=== PATIENT | male | born 1955 | race Caucasian/White ===

== ENCOUNTER 2017-10-20 08:50 | Emergency (ER) | payer OTHER ==
[~2017-10-20] VITALS: Ht 180.3 cm; Wt 74.2 kg
[~2017-10-20 08:50] MED LIST: ASPI81TA28 PO; MISCTAB26 PO; [UNRECOGNIZED DRUG - OTHER] PO; vitamin c PO
[2017-10-20 08:53] VITALS: TEMP 36.4; Ht 180.3 cm; Wt 74.2 kg
[2017-10-20] MEDS ORDERED: CALC-354 PO (09:40)
[2017-10-20] MEDS ORDERED: SODIUM CHLORIDE 0.9% 1000ML 1,000 ML IV STA (09:46)
[2017-10-20] MEDS ORDERED: ONDANSETRON INJ 2 MG/ML 2 ML VIAL IV STA (09:46)
[2017-10-20] MEDS ORDERED: MoRPHine SULFATE 4 MG/ML 1 ML CARP\\VIAL IV PRN (10:00)
[2017-10-20 10:09] LABS: BASO % 0.7 %; BASO ABS # 0.04 K/uL (0-0.2); EOS % 0.9 %; EOS ABS # 0.05 K/uL (0-0.5); HEMATOCRIT 46.4 % (42-52); HEMOGLOBIN 16.4 g/dL (14.0-18.0); IG# 0.02 K/uL (0.00-0.02); LYMPH % 32.9 %; LYMPH ABS # 1.93 K/uL (1.2-3.4); MEAN CELL VOLUME 88.4 fL (80-100); MEAN CORPUSCULAR HEMOGLOBIN 31.2 pg (25-34); MEAN CORPUSCULAR HGB CONC 35.3 g/dl (32-36); MEAN PLATELET VOLUME 10.5 fL (7.4-10.4); MONO % 10.9 %; MONO ABS # 0.64 K/uL (0.11-0.59); NEUT % 54.3 %; NEUT ABS # 3.19 K/uL (1.4-6.5); PLATELET COUNT 171 K/uL (130-400); RED CELL DISTRIBUTION WIDTH CV 13.1 % (11.5-14.5); RED CELL DISTRIBUTION WIDTH SD 42.2 fL (36.4-46.3); WHITE BLOOD COUNT 5.87 K/uL (4.8-10.8)
[2017-10-20 10:24] LABS: ALBUMIN 3.6 gm/dl (3.4-5.0); CALCIUM 9.2 mg/dl (8.5-10.1); CREATININE 0.95 mg/dl (0.60-1.40); POTASSIUM 4.1 mmol/L (3.5-5.1)
[2017-10-20 10:27] LABS: TOTAL PROTEIN 7.6 gm/dl (6.4-8.2)
--- NOTE | 2017-10-20 10:56 | DIAGNOSTIC IMAGING REPORT ---
PA CHEST WITH ABDOMINAL SERIES CLINICAL HISTORY: Generalized abdominal pain. FINDINGS: A PA chest radiograph is compared to study dated 06/08/2016. The cardiomediastinal silhouette is unremarkable. The lungs and pleural spaces are clear. No pneumothorax is seen. The bony thorax is grossly intact. Supine and erect abdominal radiographs are correlated with abdominal CT dated 05/10/2016. There is a nonobstructed abdominal bowel gas pattern. No evidence of intraperitoneal free air is seen. There are no abnormal abdominal calcifications. Calcified phleboliths are noted in the pelvis. The lumbosacral spine and bony pelvis appear intact. IMPRESSION: 1. No active disease in the chest. 2. Nonobstructed abdominal bowel gas pattern. Electronically signed by: Esau Kasper M.D. 10/20/2017 10:54 AM Dictated Date/Time: 10/20/2017 10:48 AM
[2017-10-20] MEDS ORDERED: METR-163 PO (11:47)
[2017-10-20 11:55] VITALS: BP 154/93; PULSE 59; O2SAT 100
--- NOTE | 2017-10-20 16:21 | EMERGENCY ROOM VISIT NOTE ---
ED Visit Note First contact with patient: 09:01 Chief Complaint: Abdominal cramping and diarrhea. History of Present Illness: Mr. Damon is a 61-year-old white male who ambulates into the ED complaining of upper abdominal cramping and diarrhea. Historically patient reports he has had previous Giardia infections from visiting [place]. Additionally he reports he is currently receiving radiation treatment for prostate cancer. Patient reports he returned from [place] on October 11. While in [place] he reports on October 04 he had 1 day of nausea and vomiting and reports that the same day he started having multiple episodes of diarrhea. He reports this diarrhea is similar to his previous Giardia infection. He describes his diarrhea as foul-smelling, watery and initially yellow in color. He is also noted that he has been having sulfur tasting burps. Patient reports starting on Monday night, 2 nights ago, he started having a decreased appetite and upper bilateral quadrant abdominal pain. He reports his pain has been constant but has significantly waxed and waned in intensity. He describes his pain as a cramping sensation. At its worse he rates his discomfort 10/10. He has not identified any aggravating or alleviating factors related to his pain. He has not taken any medication for pain prior to arrival at the hospital. Associated with his pain he continues to have yellowish diarrhea, sensations of abdominal bloating, decreased appetite and difficulty sleeping. Additionally patient does report since the onset of his diarrhea he has lost 7 pounds. He denies fevers, chills, sweats, skin eruptions, skin color changes, recent antibiotic use, upper respiratory tract symptoms, cough, wheezing, shortness of breath, chest pain, palpitations, return of nausea/vomiting, rectal bleeding, black/tarry stools, back/flank pain, urinary symptoms, hematuria. Review of Systems: As noted above in history of present illness. All body systems were reviewed and found to be negative as noted above. Past Medical History: As previously noted and Lyme's disease. Current Medications: Patient denies. Allergies to Medications: Patient denies. Social History: Patient is currently employed; he feels safe in his home environment; he denies tobacco use and admits to social alcohol use. Physical Examination: Vital Signs: Date Time Temp Pulse Resp B/P (MAP) Pulse Ox O2 Delivery O2 Flow Rate FiO2 10/20/17 11:55 59 18 154/93 100 4/13/18 10:11 63 18 144/81 98 Room Air 10/20/17 08:53 36.4 84 18 125/88 97 Room Air GENERAL: 61-year-old female in mild distress due to symptoms, nontoxic-appearing , afebrile and hemodynamically stable. NEUROLOGICAL: Awake, alert and oriented to person, place and time. Answering questions appropriately and following commands. Normal gait. Good hand eye coordination. No focal motor sensory deficits. SKIN: Warm, dry and pink. No soft tissue eruptions or trauma noted. HEENT: Atraumatic and normocephalic. PERRL. Sclera white and conjunctiva pink. No drainage from naris. Oral cavity moist and pink. Pharynx is nonerythematous or edematous. Speech normal. No lymphadenopathy. Trachea midline. No jugular venous distention. BACK: No tenderness over the bony spine. No CVA tenderness. THORAX: Lungs sounds are clear to auscultation and equal bilaterally with symmetrical chest wall. No wheezing, rales or rhonchi. No crepitus, tenderness , subcutaneous air or deformities noted. HEART: Regular rate and rhythm. No gallops, rubs or murmurs are appreciated. ABDOMEN: Flat, soft and nontender. Positive bowel sounds in all quadrants. No guarding, rigidity or organomegaly. EXTREMITIES: Moves all extremities well on command and with purpose. All distal neurovascular statuses are intact and equal bilaterally. No calf tenderness or cords. ED Course: Patient is assessed as noted above. Patient's medication list was reviewed. Laboratory Testing: Test 10/20/17 10:00 Range/Units White Blood Count 5.87 4.8-10.8 K/uL Red Blood Count 5.25 4.7-6.1 M/uL Hemoglobin 16.4 14.0-18.0 g/dL Hematocrit 46.4 42-52 % Mean Corpuscular Volume 88.4 80-100 fL Mean Corpuscular Hemoglobin 31.2 25-34 pg Mean Corpuscular Hemoglobin Concent 35.3 32-36 g/dl Platelet Count 171 130-400 K/uL Mean Platelet Volume 10.5 7.4-10.4 fL Neutrophils (%) (Auto) 54.3 % Lymphocytes (%) (Auto) 32.9 % Monocytes (%) (Auto) 10.9 % Eosinophils (%) (Auto) 0.9 % Basophils (%) (Auto) 0.7 % Neutrophils # (Auto) 3.19 1.4-6.5 K/uL Lymphocytes # (Auto) 1.93 1.2-3.4 K/uL Monocytes # (Auto) 0.64 0.11-0.59 K/uL Eosinophils # (Auto) 0.05 0-0.5 K/uL Basophils # (Auto) 0.04 0-0.2 K/uL RDW Standard Deviation 42.2 36.4-46.3 fL RDW Coefficient of Variation 13.1 11.5-14.5 % Immature Granulocyte % (Auto) 0.3 % Immature Granulocyte # (Auto) 0.02 0.00-0.02 K/uL Urine Color DK YELLOW Urine Appearance CLEAR CLEAR Urine pH 5.0 4.5-7.5 Urine Specific [place] 1.032 1.000-1.030 Urine Protein NEG NEG Urine Glucose (UA) NEG NEG Urine Ketones NEG NEG Urine Occult Blood NEG NEG Urine Nitrite NEG NEG Urine Bilirubin NEG NEG Urine Urobilinogen NEG NEG Urine Leukocyte Esterase NEG NEG Sodium Level 137 136-145 mmol/L Potassium Level 4.1 3.5-5.1 mmol/L Chloride Level 107 98-107 mmol/L Carbon Dioxide Level 27 21-32 mmol/L Anion Gap 3.0 3-11 mmol/L Blood Urea Nitrogen 22 7-18 mg/dl Creatinine 0.95 0.60-1.40 mg/dl Est Creatinine Clear Calc Drug Dose 86.8 ml/min Estimated GFR () 100.4 Estimated GFR (Non- 86.7 BUN/Creatinine Ratio 23.7 10-20 Random Glucose 93 70-99 mg/dl Calcium Level 9.2 8.5-10.1 mg/dl Total Bilirubin 0.5 0.2-1 mg/dl Direct Bilirubin 0.1 0-0.2 mg/dl Aspartate Amino Transf (AST/SGOT) 21 15-37 U/L Alanine Aminotransferase (ALT/SGPT) 48 12-78 U/L Alkaline Phosphatase 50 45-117 U/L Total Protein 7.6 6.4-8.2 gm/dl Albumin 3.6 3.4-5.0 gm/dl Lipase 189 73-393 U/L C.difficile Toxin B Gene (PCR): Negative. Rotavirus Antigen: Negative. WBC Smear: Pending. Shiga Toxin Test: Pending. Stool Culture: Pending. Acute Abdominal X-Ray Series: Was read by myself and the radiologist showing no acute infiltrates, effusions or pneumothorax. Normal heart silhouette and bony anatomy. Abdominal component shows no free air under the diaphragms, no abnormal bowel gas patterns. No bowel obstruction. Patient was hydrated with normal saline; patient was offered pain medications for his discomfort and refused. Patient was reassessed multiple times during his stay in the emergency department. Patient's case was reviewed with Dr. Mojica; we agreed on diagnostic approach , treatment, disposition and plan. Patient was educated about today's findings and instructed on his treatment plan ; he verbalized understanding and agreement with this plan. CLINICAL IMPRESSION: Abdominal cramping. Diarrhea. Decision-Making: Initially my differential diagnosis I considered bowel obstruction, diarrheal illness, C. difficile, from multiple causes and other causes. Disposition: Patient discharged home in stable condition; prior to departure he was reassessed and subjectively reported he was feeling better. Plan: Patient was encouraged alternate ibuprofen and acetaminophen every 3 hours as needed for pain. Patient was encouraged to stay well-hydrated. Patient was encouraged to use a bland diet for next 48 hours. Patient was encouraged to consider eating smaller meals 5 or 6 times a day versus 3 large meals. Patient was encouraged to follow-up with primary care provider for follow-up care and treatment and culture results. Patient was prescribed Flagyl 500 mg 3 times a day for 10 days. Patient was encouraged return the ED for worsening/uncontrolled abdominal pain, fevers, bloody stools, bloody vomitus or any new/concerning symptoms.
== END 2017-10-20 12:08 | disposition home or self-care (01) ==
LOC: C.EDB 08:51
DX: R10.9 Unspecified abdominal pain (principal); R19.7 Diarrhea, unspecified; C61 Malignant neoplasm of prostate; Z86.19 Personal history of other infectious and parasitic diseases

== ENCOUNTER → 2017-11-02 | Outpatient (CLI) | payer OTHER ==
[~2017-11-02] MED LIST changes: +CALC-354 PO
== END | disposition home or self-care (01) ==
LOC: C.LABSPEC 12:45
PROVIDERS: ATTEND Physician Assistant
DX: R19.7 Diarrhea, unspecified (principal)

== ENCOUNTER → 2017-11-09 | Outpatient (CLI) | payer OTHER ==
[~2017-11-09] MED LIST changes: +OPTIRAY 320 IV PRN
--- NOTE | 2017-11-09 08:59 | DIAGNOSTIC IMAGING REPORT ---
ABD WITH IV AND ORAL CONT (CT) HISTORY: 61 years-old Male acute right upper quadrant abdominal pain. History of prostate cancer. COMPARISON: CT abdomen and pelvis 05/10/2016 TECHNIQUE: Multiple axial CT images of the abdomen were obtained following the administration of both IV and oral contrast. A dose lowering technique was used consistent with the principals of [facility]. FINDINGS: Mild dependent subsegmental bibasilar atelectasis. 3 mm pleural-based nodule of the left lower lobe on image 15 series 3 is unchanged. No pneumatosis or pneumoperitoneum. Imaged inferior cardiac chambers are unremarkable. Coronary arterial calcifications are noted. Multiple circumscribed low attenuating lesions throughout the liver are again seen suggesting cysts measuring up to 5.3 cm within the right hepatic lobe. No intrahepatic biliary ductal dilation. Hepatic and splenic calcifications are noted suggesting prior granulomatous disease. Gallbladder and adrenal glands are within normal limits. There is a circumscribed fluid attenuating lesion again noted involving the pancreatic head measuring 2.3 x 1.8 cm, previously measuring 1.8 x 1.7 cm on study dated 05/10/2016. No pancreatic ductal dilation or peripancreatic inflammatory changes. Low attenuating lesions of the kidneys bilaterally measuring up to 10 mm suggest renal cysts. 4 mm nonobstructing calculus of the superior pole right kidney. There aren't no ureteral calculi or obstructive uropathy identified. No aortic aneurysm. There is a small sliding-type hiatal hernia. No bowel obstruction or focal bowel wall thickening. Mild to moderate stool volume throughout the imaged colon. The appendix is not imaged. Soft tissues are within normal limits. Moderate multilevel facet arthrosis. No suspicious lytic or blastic bony lesions. IMPRESSION: 1. No acute intra-abdominal abnormality identified. 2. Multiple hepatic and renal cysts redemonstrated. 3. Circumscribed fluid attenuating lesion of the pancreatic head measuring 2.3 x 1.8 cm suggests a sidebranch IPMN, previously measuring 1.8 x 1.7 cm on study dated 05/10/2016. No pancreatic ductal dilation. 4. 4 mm nonobstructing calculus of the superior pole right kidney. 5. Small sliding-type hiatal hernia. The above report was generated using voice recognition software. It may contain grammatical, syntax or spelling errors. Electronically signed by: Bk Portillo M.D. 11/09/2017 8:58 AM Dictated Date/Time: 11/09/2017 8:51 AM
== END | disposition home or self-care (01) ==
LOC: C.CTS 08:21
PROVIDERS: ATTEND Physician Assistant
DX: R10.11 Right upper quadrant pain (principal); K44.9 Diaphragmatic hernia without obstruction or gangrene; N20.0 Calculus of kidney; Z85.46 Personal history of malignant neoplasm of prostate

== ENCOUNTER → 2018-02-05 | Outpatient (CLI) | payer OTHER ==
[~2018-02-05] MED LIST changes: +CHOL400T PO; +HYDR2.5C37 TOP; +IBUP-1459 PO; -OPTIRAY 320 IV PRN
[2018-02-05 10:46] LABS: ALBUMIN 3.7 gm/dl (3.4-5.0); ALKALINE PHOSPHATASE 48 U/L (45-117); ALT/SGPT 32 U/L (12-78); AST/SGOT 19 U/L (15-37); BLOOD UREA NITROGEN 20 mg/dl (7-18); CALCIUM 8.9 mg/dl (8.5-10.1); CARBON DIOXIDE 28 mmol/L (21-32); CHOLESTEROL 174 mg/dl (0-200); CREATININE 0.91 mg/dl (0.60-1.40); GLUCOSE 91 mg/dl (70-99); LDL CHOLESTEROL CALCULATED 85 mg/dl; POTASSIUM 4.4 mmol/L (3.5-5.1); SODIUM 138 mmol/L (136-145); TOTAL PROTEIN 7.3 gm/dl (6.4-8.2)
== END | disposition home or self-care (01) ==
LOC: C.LAB 09:04
PROVIDERS: ATTEND Internal Medicine
DX: Z00.00 Encounter for general adult medical examination without abnormal findings (principal)

== ENCOUNTER 2018-02-14 20:15 | Emergency (ER) | payer OTHER ==
[~2018-02-14] VITALS: Ht 177.8 cm; Wt 80.0 kg
[2018-02-14 20:33] VITALS: TEMP 36.4; Ht 177.8 cm; Wt 80.0 kg
--- NOTE | 2018-02-14 20:52 | EMERGENCY ROOM VISIT NOTE ---
History Report prepared by Criselda: Caryn Ribera Under the Supervision of: Dr. Lg Arriaga M.D. First contact with patient: 20:36 Chief Complaint: FLANK PAIN Stated Complaint: BACK PAIN, BLADDER SPASMS History of Present Illness The patient is a 62 year old white male with a past medical history of a prostate cancer and proctectomy who presents to the ED with a cc of severe back pain beginning at 1914 today. Positive abdominal pain, chills, increased urinary frequency. Negative fevers, vomiting, blood in his urine, history of kidney stones. He states he had bladder pain that began 2 days lpta at lunch but did not think much of it. He reports he did not eat a lot yesterday or today but around 1914 today, his pain was "very intense." so he decided to come to the ED. The patient took 3 ibuprofen which alleviated his pain. His last normal bowel movement was today lpta. He notes he recently went through radiation treatment in November for his prostate cancer. Source of History: patient Onset: 1914 today Position: back, other (bladder) Symptom Intensity: severe Quality: other (back pain) Modifying Factors (Relieving): ibuprofen (3) Associated Symptoms: + chills, + abdominal pain, + urinary symptoms ( increased urinary frequency), No vomiting Note: Negative blood in his urine or history of kidney stones Review of Systems See HPI for pertinent positives and negatives. A total of ten systems were reviewed and were otherwise negative. Past Medical & Surgical Medical Problems: (1) Borderline hypertension Surgical Problems: (1) History of resection of rectum Family History Cancer Diabetes mellitus FHx: kidney disease Heart disease High blood pressure Lung disease Social History Smoking Status: Never Smoker Smokeless Tobacco Use: No Alcohol Use: none Marital Status: Housing Status: lives with family Occupation Status: employed Current/Historical Medications Scheduled Ascorbic Acid (Vitamin C), 1 DOSE PO DAILY Aspirin (Aspirin Ec), 81 MG PO QAM Calcium Carbonate-Cholecalcife (Caltrate 600+D), 2 TABS PO QAM Cholecalciferol (Vitamin D), 400 INTER.UNIT PO DAILY Misc Natural Products (Ginkgo Biloba), 1 TAB PO QAM Tamsulosin Hcl (Flomax), 0.4 MG PO HS [focus vitamin], 3 CAP PO DAILY Scheduled PRN Ibuprofen Tab (Advil), 400-600 MG PO Q6H PRN for Pain Ondansetron Hcl (Zofran), 4 MG PO Q8H PRN for Nausea Oxycodone Immediate Rel Tab (Roxicodone Ir), 5 MG PO Q4-6H PRN for Pain Allergies Coded Allergies: No Known Allergies (Unverified , 01/11/18) Physical Exam Vital Signs Date Time Temp Pulse Resp B/P (MAP) Pulse Ox O2 Delivery O2 Flow Rate FiO2 02/14/18 22:45 56 21 02/14/18 22:30 148/85 02/14/18 22:15 58 16 98 02/14/18 22:00 145/82 02/14/18 21:52 62 02/14/18 21:48 160/90 02/14/18 21:15 60 16 02/14/18 20:33 36.4 68 18 158/92 98 Room Air Physical Exam GENERAL: Awake, alert, well-appearing, NAD. Wearing glasses. HENT: Normocephalic, atraumatic. EYES: Normal conjunctiva. Sclera non-icteric. PERRL. No anisocoria. NECK: Supple. No nuchal rigidity. FROM. RESPIRATORY: CTAB, no rhonchi, wheezing, crackles CARDIAC: RRR, no MRG ABDOMEN: Soft, NTND, BS+. Negative obturators, negative psoas. Small vertical incision well healed over lower abd . MSK: Right sided CVA TTP, no LE edema NEURO: GCS 15, CN 2-12 intact, moves all 4s on command SKIN: No rash or jaundice noted. Medical Decision & Procedures ER Provider Diagnostic Interpretation: Radiology results as stated below per my review and radiologist interpretation: ABD/PELVIS IV CONTRAST ONLY CT DOSE: 380.03 mGy.cm HISTORY: Pain h/o prostatectomy and rads; R sided flank pain TECHNIQUE: Multiaxial CT images of the abdomen and pelvis were performed following the use of intravenous contrast. A dose lowering technique was utilized adhering to the principles of ALARA. COMPARISON STUDY: 11/09/2017 FINDINGS: Lung bases are clear. Multiple hepatic cysts considered unchanged. No evidence for gallbladder distention. Cystic lesion of the pancreatic uncinate process is unchanged. Kidneys are negative for hydronephrosis. There is mild renal cortical scarring bilaterally. The bowel pattern within the abdomen and pelvis is considered unremarkable. There is a 3 mm nonobstructing calcification distal right ureter nearly proximal to the right ureterovesical junction. No free fluid within the pelvic cul-de-sac. No significant abdominal or pelvic adenopathy. IMPRESSION: 1. 3 mm nonobstructing/minimally obstructing calculus distal right ureter immediately proximal to the right ureterovesical junction. 2. Hepatic and pancreatic cysts changes considered unaltered. 3. Cystic lesion pancreatic uncinate process unchanged from the prior study. 4. Nonobstructive bowel pattern. The above report was generated using voice recognition software. It may contain grammatical, syntax or spelling errors. Electronically signed by: Israel Mckoy M.D. 02/14/2018 9:49 PM Laboratory Results 02/14/18 20:45 Red Blood Count 4.45, Mean Corpuscular Volume 90.8, Mean Corpuscular Hemoglobin 31.7, Mean Corpuscular Hemoglobin Concent 34.9, Mean Platelet Volume 10.4, Neutrophils (%) (Auto) 55.8, Lymphocytes (%) (Auto) 34.9, Monocytes (%) (Auto) 7.5, Eosinophils (%) (Auto) 1.4, Basophils (%) (Auto) 0.2, Neutrophils # (Auto) 2.45, Lymphocytes # (Auto) 1.53, Monocytes # (Auto) 0.33, Eosinophils # (Auto) 0.06, Basophils # (Auto) 0.01 02/14/18 20:45 Test 02/14/18 20:45 02/14/18 21:04 White Blood Count 4.39 K/uL (4.8-10.8) Red Blood Count 4.45 M/uL (4.7-6.1) Hemoglobin 14.1 g/dL (14.0-18.0) Hematocrit 40.4 % (42-52) Mean Corpuscular Volume 90.8 fL (80-100) Mean Corpuscular Hemoglobin 31.7 pg (25-34) Mean Corpuscular Hemoglobin Concent 34.9 g/dl (32-36) Platelet Count 181 K/uL (130-400) Mean Platelet Volume 10.4 fL (7.4-10.4) Neutrophils (%) (Auto) 55.8 % Lymphocytes (%) (Auto) 34.9 % Monocytes (%) (Auto) 7.5 % Eosinophils (%) (Auto) 1.4 % Basophils (%) (Auto) 0.2 % Neutrophils # (Auto) 2.45 K/uL (1.4-6.5) Lymphocytes # (Auto) 1.53 K/uL (1.2-3.4) Monocytes # (Auto) 0.33 K/uL (0.11-0.59) Eosinophils # (Auto) 0.06 K/uL (0-0.5) Basophils # (Auto) 0.01 K/uL (0-0.2) RDW Standard Deviation 40.4 fL (36.4-46.3) RDW Coefficient of Variation 12.1 % (11.5-14.5) Immature Granulocyte % (Auto) 0.2 % Immature Granulocyte # (Auto) 0.01 K/uL (0.00-0.02) Urine Color YELLOW Urine Appearance CLOUDY (CLEAR) Urine pH >= 9.0 (4.5-7.5) Urine Specific [place] 1.018 (1.000-1.030) Urine Protein TRACE (NEG) Urine Glucose (UA) NEG (NEG) Urine Ketones NEG (NEG) Urine Occult Blood NEG (NEG) Urine Nitrite NEG (NEG) Urine Bilirubin NEG (NEG) Urine Urobilinogen NEG (NEG) Urine Leukocyte Esterase NEG (NEG) Urine WBC (Auto) 1-5 /hpf (0-5) Urine RBC (Auto) 0-4 /hpf (0-4) Urine Hyaline Casts (Auto) 1-5 /lpf (0-5) Urine Epithelial Cells (Auto) >30 /lpf (0-5) Urine Bacteria (Auto) NEG (NEG) Urine Renal Epithelial Cells /lpf (0-5) Urine Crystals AMORPHOUS SEDIMENT (NONE Est Creatinine Clear Calc Drug Dose 60.7 ml/min Estimated GFR () 67.0 Estimated GFR (Non- 57.8 BUN/Creatinine Ratio 20.0 (10-20) Calcium Level 9.9 mg/dl (8.5-10.1) Magnesium Level 2.1 mg/dl (1.8-2.4) Total Bilirubin 0.4 mg/dl (0.2-1) Direct Bilirubin 0.1 mg/dl (0-0.2) Aspartate Amino Transf (AST/SGOT) 24 U/L (15-37) Alanine Aminotransferase (ALT/SGPT) 34 U/L (12-78) Alkaline Phosphatase 45 U/L (45-117) Total Protein 7.6 gm/dl (6.4-8.2) Albumin 4.0 gm/dl (3.4-5.0) Lipase 153 U/L (73-393) Bedside Hemoglobin 12.9 g/dl (14.0-18.0) Bedside Hematocrit 38 % (42-52) Bedside Sodium 143 mEq/L (135-144) Bedside Potassium 3.6 mEq/L (3.3-5.0) Bedside Chloride 105 mEq/L (101-112) Bedside Total CO2 24 mEq/l (24-31) Anion Gap 19.0 mmol/L (16-25) Bedside Blood Urea Nitrogen 26 mg/dl (7-18) Bedside Creatinine 1.3 mg/dl (0.6-1.3) Bedside Glucose (other) 118 mg/dl (70-99) Bedside Ionized Calcium (Leigh) 1.16 mmol/l (1.12-1.32) Laboratory results reviewed by me Medications Administered Medications (Trade) Dose Ordered Sig/Ute Route Start Time Stop Time Status Last Admin Dose Admin Tamsulosin HCl (Flomax Cap) 0.4 mg NOW ONCE PO 02/14/18 22:15 02/14/18 22:16 DC 02/14/18 22:24 0.4 MG Ketorolac Tromethamine (Toradol Inj) 30 mg NOW STAT IV 02/14/18 22:14 02/14/18 22:16 DC 02/14/18 22:25 30 MG Oxycodone HCl (Roxicodone Immediate Rel 5MG Home Pack) 1 homepack UD ONCE PO 02/14/18 22:30 02/14/18 22:31 DC 02/14/18 22:45 1 HOMEPACK Tamsulosin HCl (Flomax Cap) 0.4 mg NOW ONCE PO 02/14/18 22:45 02/14/18 22:46 DC 02/14/18 22:44 0.4 MG ECG Per My Interpretation Indication: abdominal pain Rate (beats per minute): 65 Rhythm: normal sinus Findings: other (normal intervals, normal axis, no STS changes or TWI) ED Course 2044: The patient was evaluated in room B2. A complete history and physical exam was performed. 2206: I reevaluated the patient. Discussed results and discharge instructions: He verbalized understanding and agreement. The patient is ready for discharge. 2223: I checked the PDMP at this time. There were no issues identified in the last year. Medical Decision The patient is a 62 year old white male with a past medical history of a prostate cancer and proctectomy who presents to the ED with a cc of severe back pain beginning at 1915 today. Positive abdominal pain, chills, increased urinary frequency. Negative fevers, vomiting, blood in his urine, history of kidney stones. Nursing notes reviewed. Ancillary studies and prior records reviewed. Differential diagnosis: Etiologies such as appendicitis, diverticulitis, PUD, biliary pathology, UTI, pancreatitis, obstruction, mesenteric ischemia, aortic pathology, infections, inflammatory bowel disease, renal colic, appendicitis, diverticulitis, mesenteric ischemia, aortic pathology, infections, inflammatory bowel disease, PUD, biliary pathology, UTI, as well as others were entertained. Patient was seen and evaluated the bedside. Patient does have a known history of prior prostate cancer status post prostatectomy. Patient did have elevated PSA levels and the patient has been receiving Lupron and last received radiation back in November. Patient was complaining of a fair amount of abdominal discomfort as well as flank pain. Patient does have some right-sided CVA tenderness to palpation on exam. Patient states that he did improve thereafter upon arrival to the emergency department. Patient states he did take 3 Motrin prior to leaving his home. Patient did have blood work completed along with a CT of the abdomen pelvis Noncon. The patient's blood work showed a borderline low white blood cell count. Patient has normal H&H and platelet count. Patient has normal kidney function and no changes in LFTs or lipase. Patient CT did show a questionable nonobstructing versus obstructing stone at the UVJ on the right side at 3 mm. Given the small size given the proximity of the bladder I believe it is suitable for outpatient follow-up and treatment given the patient has had no recurrent pain since his presentation. The patient does have a follow-up with his urologist Dr. Arcos March 14. Patient was given a first dose of Flomax and Toradol. Patient was also given advisement on Motrin and Tylenol in addition to some narcotic medication that should only be taken after trying Motrin Tylenol. Patient was counseled at length with regard to narcotic use. Patient was feeling well. Urinalysis does not show any evidence of infection. Patient was given strict follow-up, discharge, and return precautions. All questions were answered. Patient was deemed suitable for outpatient follow-up at this time. Patient agreed with the plan of care and was safely discharged home. [place] Drug Monitoring Program Search Results: patient reviewed within database, no issues identified Medication Reconcilliation Current Medication List: was personally reviewed by me Blood Pressure Screening Patient's blood pressure: Elevated blood pressure Blood pressure disposition: Referred to PCP Impression Primary Impression: Ureterolithiasis Additional Impression: Flank pain Scribe Attestation The scribe's documentation has been prepared under my direction and personally reviewed by me in its entirety. I confirm that the note above accurately reflects all work, treatment, procedures, and medical decision making performed by me. Departure Information Dispostion Home / Self-Care Prescriptions Oxycodone Immediate Rel Tab (ROXICODONE IR) 5 Mg Tab 5 MG PO Q4-6H Y for Pain, #15 TAB Prov: Lg Arriaga M.D. 02/14/18 Ondansetron Hcl (ZOFRAN) 4 Mg Tab 4 MG PO Q8H Y for Nausea, #12 TAB Prov: Lg Arriaga M.D. 02/14/18 Tamsulosin Hcl (FLOMAX) 0.4 Mg Cap 0.4 MG PO HS for 10 Days, #10 CAP Prov: Lg Arriaga M.D. 02/14/18 Referrals Luan Zapata M.D. (PCP) Forms HOME CARE DOCUMENTATION FORM, IMPORTANT VISIT INFORMATION Patient Instructions Kidney Stones - [facility], Kidney Stones [facility], [facility] Additional Instructions Please return to the emergency department if you have worsening or recurrent symptoms not amenable to at-home treatment. Please call for a follow-up appointment with her primary care physician. Please take your medications as prescribed. If you have other concerns and/or complaints please feel free to also call your primary care physician's office or return the ED for further evaluation, management, and treatment. You may take 400 mg Ibuprofen every 6 hours as needed for pain/fever with food unless told by your physician not to take NSAIDs. You may take tylenol 650 mg every 6 hours as needed for pain/fever unless told by your physician to not take it or have liver problems. You may take motrin and tylenol separately or at the same time. If you still have discomfort you may take the narcotic medication. Please be advised that these medications are habit forming, can make you sleepy, and can cause breathing issues. Do not use if you require your full attention. Take only as prescribed. Take your medications as prescribed. Take your Flomax in the evening before bed. You have been examined and treated today on an emergency basis only. This is not a substitute for, or an effort to provide, complete comprehensive medical care. It is impossible to recognize and treat all injuries or illnesses in a single emergency department visit. It is therefore important that you follow up closely with [facility], your PCP, and/or your specialist(s). Call as soon as possible for an appointment. Thank you for your time and consideration. I look forward to speaking with you again soon. Please don't hesitate to call us if you have any questions. Problem Qualifiers
[2018-02-14] MEDS ORDERED: OPTIRAY 320 IV PRN (21:00)
[2018-02-14 21:07] LABS: BASO % 0.2 %; BASO ABS # 0.01 K/uL (0-0.2); EOS % 1.4 %; EOS ABS # 0.06 K/uL (0-0.5); HEMATOCRIT 40.4 % (42-52); HEMOGLOBIN 14.1 g/dL (14.0-18.0); IG# 0.01 K/uL (0.00-0.02); LYMPH % 34.9 %; LYMPH ABS # 1.53 K/uL (1.2-3.4); MEAN CELL VOLUME 90.8 fL (80-100); MEAN CORPUSCULAR HEMOGLOBIN 31.7 pg (25-34); MEAN CORPUSCULAR HGB CONC 34.9 g/dl (32-36); MEAN PLATELET VOLUME 10.4 fL (7.4-10.4); MONO % 7.5 %; MONO ABS # 0.33 K/uL (0.11-0.59); NEUT % 55.8 %; NEUT ABS # 2.45 K/uL (1.4-6.5); PLATELET COUNT 181 K/uL (130-400); RED CELL DISTRIBUTION WIDTH CV 12.1 % (11.5-14.5); RED CELL DISTRIBUTION WIDTH SD 40.4 fL (36.4-46.3); WHITE BLOOD COUNT 4.39 K/uL (4.8-10.8)
[2018-02-14] MEDS ORDERED: ASCO1POW10 PO (21:24)
[2018-02-14] MEDS ORDERED: IBUP-103 PO (21:24)
[2018-02-14 21:25] LABS: ISTAT CREATININE 1.3 mg/dl (0.6-1.3); ISTAT IONIZED CALCIUM 1.16 mmol/l (1.12-1.32); ISTAT POTASSIUM 3.6 mEq/L (3.3-5.0)
[2018-02-14 21:26] LABS: CALCIUM 9.9 mg/dl (8.5-10.1); CREATININE 1.32 mg/dl (0.60-1.40); POTASSIUM 3.7 mmol/L (3.5-5.1); TOTAL PROTEIN 7.6 gm/dl (6.4-8.2)
--- NOTE | 2018-02-14 21:50 | DIAGNOSTIC IMAGING REPORT ---
ABD/PELVIS IV CONTRAST ONLY CT DOSE: 380.03 mGy.cm HISTORY: Pain h/o prostatectomy and rads; R sided flank pain TECHNIQUE: Multiaxial CT images of the abdomen and pelvis were performed following the use of intravenous contrast. A dose lowering technique was utilized adhering to the principles of ALARA. COMPARISON STUDY: 11/09/2017 FINDINGS: Lung bases are clear. Multiple hepatic cysts considered unchanged. No evidence for gallbladder distention. Cystic lesion of the pancreatic uncinate process is unchanged. Kidneys are negative for hydronephrosis. There is mild renal cortical scarring bilaterally. The bowel pattern within the abdomen and pelvis is considered unremarkable. There is a 3 mm nonobstructing calcification distal right ureter nearly proximal to the right ureterovesical junction. No free fluid within the pelvic cul-de-sac. No significant abdominal or pelvic adenopathy. IMPRESSION: 1. 3 mm nonobstructing/minimally obstructing calculus distal right ureter immediately proximal to the right ureterovesical junction. 2. Hepatic and pancreatic cysts changes considered unaltered. 3. Cystic lesion pancreatic uncinate process unchanged from the prior study. 4. Nonobstructive bowel pattern. The above report was generated using voice recognition software. It may contain grammatical, syntax or spelling errors. Electronically signed by: Israel Mckoy M.D. 02/14/2018 9:49 PM Dictated Date/Time: 02/14/2018 9:45 PM
[2018-02-14] MEDS ORDERED: KETOROLAC TROMETHAMINE 30 MG/ML VIAL IV STA (22:14)
[2018-02-14 22:15] VITALS: O2SAT 98
[2018-02-14] MEDS ORDERED: TAMSULOSIN HCL 0.4 MG CAP PO ONE ×2 (22:15→22:45)
[2018-02-14] MEDS ORDERED: ONDA4TAB46 PO (22:24)
[2018-02-14] MEDS ORDERED: OXYC-737 PO (22:24)
[2018-02-14] MEDS ORDERED: TAMS0.4C38 PO (22:24)
[2018-02-14 22:30] VITALS: BP 148/85
[2018-02-14] MEDS ORDERED: OXYCODONE IR HOME PACK PO ONE (22:30)
[2018-02-14] MEDS ORDERED: EMPTY 8 DRAM VIAL ONE (22:42)
[2018-02-14 22:45] VITALS: PULSE 56
== END 2018-02-14 22:51 | disposition home or self-care (01) ==
LOC: C.EDB 20:17
DX: N20.1 Calculus of ureter (principal); D72.819 Decreased white blood cell count, unspecified; R03.0 Elevated blood-pressure reading, without diagnosis of hypertension; Z90.79 Acquired absence of other genital organ(s); Z79.82 Long term (current) use of aspirin; Z79.899 Other long term (current) drug therapy

== ENCOUNTER 2018-02-17 14:37 | Emergency (ER) | payer OTHER ==
[~2018-02-17] VITALS: Ht 177.8 cm; Wt 82.0 kg
[~2018-02-17 14:37] MED LIST changes: +ASCO1POW10 PO; -HYDR2.5C37 TOP; +IBUP-103 PO; -IBUP-1459 PO; +ONDA4TAB46 PO; +OXYC-737 PO; +TAMS0.4C38 PO; -vitamin c PO
[2018-02-17 14:42] VITALS: TEMP 36.7; Ht 177.8 cm; Wt 82.0 kg
[2018-02-17] MEDS ORDERED: KETOROLAC TROMETHAMINE 30 MG/ML VIAL IV STA (15:06)
[2018-02-17] MEDS ORDERED: SODIUM CHLORIDE 0.9% 1000ML 1,000 ML IV STA (15:06)
[2018-02-17 15:38] LABS: BASO % 0.2 %; BASO ABS # 0.01 K/uL (0-0.2); EOS % 1.3 %; EOS ABS # 0.06 K/uL (0-0.5); HEMATOCRIT 37.5 % (42-52); HEMOGLOBIN 12.8 g/dL (14.0-18.0); IG# 0.01 K/uL (0.00-0.02); LYMPH % 26.9 %; LYMPH ABS # 1.23 K/uL (1.2-3.4); MEAN CELL VOLUME 90.4 fL (80-100); MEAN CORPUSCULAR HEMOGLOBIN 30.8 pg (25-34); MEAN CORPUSCULAR HGB CONC 34.1 g/dl (32-36); MEAN PLATELET VOLUME 10.6 fL (7.4-10.4); MONO % 8.5 %; MONO ABS # 0.39 K/uL (0.11-0.59); NEUT % 62.9 %; NEUT ABS # 2.88 K/uL (1.4-6.5); PLATELET COUNT 166 K/uL (130-400); RED CELL DISTRIBUTION WIDTH CV 12.1 % (11.5-14.5); RED CELL DISTRIBUTION WIDTH SD 39.7 fL (36.4-46.3); WHITE BLOOD COUNT 4.58 K/uL (4.8-10.8)
[2018-02-17 15:58] LABS: ALBUMIN 3.7 gm/dl (3.4-5.0); CALCIUM 9.2 mg/dl (8.5-10.1); CREATININE 1.46 mg/dl (0.60-1.40); POTASSIUM 4.2 mmol/L (3.5-5.1); TOTAL PROTEIN 7.2 gm/dl (6.4-8.2)
--- NOTE | 2018-02-17 16:10 | DIAGNOSTIC IMAGING REPORT ---
ULTRASOUND KIDNEYS AND BLADDER CLINICAL HISTORY: Right flank pain. Right vesicoureteral junction stone. COMPARISON STUDY: Abdominal CT dated 02/14/2018. TECHNIQUE: Real-time, grayscale, and color flow sonography of the kidneys and bladder is performed. Images are reviewed in the transverse and longitudinal planes. FINDINGS: Kidneys: The kidneys are normal in size and echotexture. The right kidney measures 12.5 x 6.9 x 6.5 cm and the left kidney measures 12.0 x 6.5 x 6.0 cm. There is mild/moderate right hydronephrosis. No hydronephrosis is seen on the left. No shadowing renal calculi are identified. A 1.7 cm cyst is noted in the interpolar left kidney. There is no sonographic evidence of contour deforming renal mass lesion. No perinephric fluid is identified. Bladder: Although decompressed, the bladder wall appears mildly thickened and trabeculated suggesting chronic outlet obstruction. Both ureteral jets were seen. Upper abdomen: Survey images of the liver show numerous cysts measuring up to 2.0 cm. IMPRESSION: 1. There is mild to moderate right hydronephrosis, likely secondary to the obstructing right vesicoureteral junction stone seen on 02/14/2018. The stone itself was not visualized. 2. The kidneys are normal in size. No left-sided hydronephrosis is seen. 3. The bladder was decompressed. Electronically signed by: Esau Kasper M.D. 02/17/2018 4:09 PM Dictated Date/Time: 02/17/2018 4:05 PM
[2018-02-17] MEDS ORDERED: OXYC-90 PO (16:50)
[2018-02-17 17:00] VITALS: BP 171/82; PULSE 57; O2SAT 99
--- NOTE | 2018-02-17 19:32 | EMERGENCY ROOM VISIT NOTE ---
History First contact with patient: 14:57 Chief Complaint: FLANK PAIN Stated Complaint: REVALUATION,KIDNEY STONE History of Present Illness The patient is a 62 year old male who presents to the Emergency Room with complaints of persistent and intermittent right flank pain. The patient reports that he was in our emergency department 3 days ago for a kidney stone. The patient reports that the pain has been intermittent since that time. He had severe pain on , but by the time he got to the emergency department , the pain was gone, and the patient went home. The patient had another episode of pain last evening around 7 PM. He took an oxycodone with complete relief of symptoms. The patient then reports onset of pain again early this afternoon, and took an oxycodone approximately 45-60 minutes ago. He now reports decreasing pain, rating his discomfort a 3 out of 10. The patient has not had any fever or significant nausea. He has noticed some blood in his urine. The patient is currently under the management of Dr. Isma Arcos for prostate cancer, history of colectomy. Review of Systems HEENT: Denies dizziness, visual problems, hearing loss, tinnitus. Denies difficulty swallowing or oral lesions. PULMONARY: Denies cough, shortness of breath, sputum production or hemoptysis. CARDIOVASCULAR: Denies chest pain, palpitations, dyspnea on exertion, orthopnea or peripheral edema. GASTROINTESTINAL: Denies diarrhea, constipation, nausea, vomiting, or anterior abdominal pain. GENITOURINARY: Denies dysuria, frequency, urgency or nocturia. Otherwise see HPI. NEUROLOGIC: Denies history of epilepsy, CVA, TIA or chronic headaches. MUSCULOSKELETAL: Denies history of joint tenderness/swelling. SKIN: Denies rashes or lesions. PSYCHIATRIC: Denies history of depression or mental illness. ENDOCRINE: Denies history of diabetes or thyroid disorders. 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 (4) Essential (Primary) Hypertension (5) Malignant Neoplasm Of Prostate (6) Personal History Of Irradiation (7) Ureteral calculus Surgical Problems: (1) History of resection of rectum Social History Problems: (1) Other Hemorrhoids Family History Cancer Diabetes mellitus FHx: kidney disease Heart disease High blood pressure Lung disease Social History Smoking Status: Never Smoker Alcohol Use: none Marital Status: Housing Status: lives with family Occupation Status: employed Current/Historical Medications Scheduled Ascorbic Acid (Vitamin C), 1 DOSE PO DAILY Aspirin (Aspirin Ec), 81 MG PO QAM Calcium Carbonate-Cholecalcife (Caltrate 600+D), 2 TABS PO QAM Cholecalciferol (Vitamin D), 400 INTER.UNIT PO DAILY Misc Natural Products (Ginkgo Biloba), 1 TAB PO QAM Tamsulosin Hcl (Flomax), 0.4 MG PO HS Scheduled PRN Ibuprofen Tab (Advil), 400-600 MG PO Q6H PRN for Pain Oxycodone Immediate Rel Tab (Roxicodone Ir), 5 MG PO Q4-6H PRN for Pain Oxycodone Ir (Roxicodone Ir), 1 TAB PO Q4H PRN for Pain Physical Exam Vital Signs Date Time Temp Pulse Resp B/P (MAP) Pulse Ox O2 Delivery O2 Flow Rate FiO2 02/17/18 17:00 57 171/82 99 02/17/18 14:42 36.7 69 18 169/97 97 Room Air Physical Exam CONSTITUTIONAL: Healthy and well nourished. Alert and oriented X 3 with positive affect. Patient does not appear in any acute distress. HEENT: Normocephalic, atraumatic. Pupils equal, round and reactive. No scleral icterus or conjunctival injection/pallor. NECK: Full active range of motion without discomfort. RESPIRATORY: Clear to auscultation bilaterally with no wheezing, crackles, rhonchi or stridor. CARDIOVASCULAR: Regular rate and rhythm with no murmurs, rubs or gallops. GASTROINTESTINAL: Bowel sounds present in all quadrants. Abdomen is soft and nontender to palpation. Negative Blackmon sign. Negative McBurney's point tenderness. Negative CVA tenderness. MUSCULOSKELETAL: Full range of motion of all joints without discomfort. INTEGUMENTARY: No rash or other significant dermatologic conditions noted. HEMATOLOGIC: No ecchymosis or petechiae noted. NEUROLOGIC: Cranial nerves II-XII grossly intact. No focal neurologic deficits noted. Medical Decision & Procedures ER Provider Diagnostic Interpretation: Retroperitoneal ultrasound shows mild to moderate right hydroureteronephrosis. The stone could not be visualized. Radiologist report is as follows: ULTRASOUND KIDNEYS AND BLADDER CLINICAL HISTORY: Right flank pain. Right vesicoureteral junction stone. COMPARISON STUDY: Abdominal CT dated 02/14/2018. TECHNIQUE: Real-time, grayscale, and color flow sonography of the kidneys and bladder is performed. Images are reviewed in the transverse and longitudinal planes. FINDINGS: Kidneys: The kidneys are normal in size and echotexture. The right kidney measures 12.5 x 6.9 x 6.5 cm and the left kidney measures 12.0 x 6.5 x 6.0 cm. There is mild/moderate right hydronephrosis. No hydronephrosis is seen on the left. No shadowing renal calculi are identified. A 1.7 cm cyst is noted in the interpolar left kidney. There is no sonographic evidence of contour deforming renal mass lesion. No perinephric fluid is identified. Bladder: Although decompressed, the bladder wall appears mildly thickened and trabeculated suggesting chronic outlet obstruction. Both ureteral jets were seen. Upper abdomen: Survey images of the liver show numerous cysts measuring up to 2.0 cm. IMPRESSION: 1. There is mild to moderate right hydronephrosis, likely secondary to the obstructing right vesicoureteral junction stone seen on 02/14/2018. The stone itself was not visualized. 2. The kidneys are normal in size. No left-sided hydronephrosis is seen. 3. The bladder was decompressed. Laboratory Results 02/17/18 15:21 Red Blood Count 4.15, Mean Corpuscular Volume 90.4, Mean Corpuscular Hemoglobin 30.8, Mean Corpuscular Hemoglobin Concent 34.1, Mean Platelet Volume 10.6, Neutrophils (%) (Auto) 62.9, Lymphocytes (%) (Auto) 26.9, Monocytes (%) (Auto) 8.5, Eosinophils (%) (Auto) 1.3, Basophils (%) (Auto) 0.2, Neutrophils # (Auto) 2.88, Lymphocytes # (Auto) 1.23, Monocytes # (Auto) 0.39, Eosinophils # (Auto) 0.06, Basophils # (Auto) 0.01 02/17/18 15:21 Test 02/17/18 15:00 02/17/18 15:21 Urine Color YELLOW Urine Appearance CLEAR (CLEAR) Urine pH 5.0 (4.5-7.5) Urine Specific [place]man 1.011 (1.000-1.030) Urine Protein NEG (NEG) Urine Glucose (UA) NEG (NEG) Urine Ketones NEG (NEG) Urine Occult Blood 2+ (NEG) Urine Nitrite NEG (NEG) Urine Bilirubin NEG (NEG) Urine Urobilinogen NEG (NEG) Urine Leukocyte Esterase TRACE (NEG) Urine WBC (Auto) 1-5 /hpf (0-5) Urine RBC (Auto) 5-10 /hpf (0-4) Urine Hyaline Casts (Auto) 1-5 /lpf (0-5) Urine Epithelial Cells (Auto) 0-5 /lpf (0-5) Urine Bacteria (Auto) NEG (NEG) White Blood Count 4.58 K/uL (4.8-10.8) Red Blood Count 4.15 M/uL (4.7-6.1) Hemoglobin 12.8 g/dL (14.0-18.0) Hematocrit 37.5 % (42-52) Mean Corpuscular Volume 90.4 fL (80-100) Mean Corpuscular Hemoglobin 30.8 pg (25-34) Mean Corpuscular Hemoglobin Concent 34.1 g/dl (32-36) Platelet Count 166 K/uL (130-400) Mean Platelet Volume 10.6 fL (7.4-10.4) Neutrophils (%) (Auto) 62.9 % Lymphocytes (%) (Auto) 26.9 % Monocytes (%) (Auto) 8.5 % Eosinophils (%) (Auto) 1.3 % Basophils (%) (Auto) 0.2 % Neutrophils # (Auto) 2.88 K/uL (1.4-6.5) Lymphocytes # (Auto) 1.23 K/uL (1.2-3.4) Monocytes # (Auto) 0.39 K/uL (0.11-0.59) Eosinophils # (Auto) 0.06 K/uL (0-0.5) Basophils # (Auto) 0.01 K/uL (0-0.2) RDW Standard Deviation 39.7 fL (36.4-46.3) RDW Coefficient of Variation 12.1 % (11.5-14.5) Immature Granulocyte % (Auto) 0.2 % Immature Granulocyte # (Auto) 0.01 K/uL (0.00-0.02) Anion Gap 8.0 mmol/L (3-11) Est Creatinine Clear Calc Drug Dose 54.9 ml/min Estimated GFR () 59.3 Estimated GFR (Non- 51.2 BUN/Creatinine Ratio 16.0 (10-20) Calcium Level 9.2 mg/dl (8.5-10.1) Total Bilirubin 0.4 mg/dl (0.2-1) Aspartate Amino Transf (AST/SGOT) 21 U/L (15-37) Alanine Aminotransferase (ALT/SGPT) 27 U/L (12-78) Alkaline Phosphatase 46 U/L (45-117) Total Protein 7.2 gm/dl (6.4-8.2) Albumin 3.7 gm/dl (3.4-5.0) Globulin 3.5 gm/dl (2.5-4.0) Albumin/Globulin Ratio 1.0 (0.9-2) Lipase 126 U/L (73-393) The above labs were reviewed. BUN and creatinine are 23 and 1.46, respectively. Urinalysis shows hematuria without obvious signs of infection. LFTs and lipase are also normal. Medications Administered Medications (Trade) Dose Ordered Sig/Ute Route Start Time Stop Time Status Last Admin Dose Admin Sodium Chloride 1,000 ml @ 999 mls/hr Q1H1M STAT IV 02/17/18 15:06 02/17/18 16:06 DC 02/17/18 15:24 999 MLS/HR Ketorolac Tromethamine (Toradol Inj) 30 mg NOW STAT IV 02/17/18 15:06 02/17/18 15:09 DC 02/17/18 15:24 30 MG Procedure 1. IV hydration: The patient was administered a normal saline 1 L bolus 2. IV medications: Toradol 30 mg IVP ED Course Patient history and physical exam were performed. Nurse's notes were reviewed. Vital signs were reviewed blood pressure 169/97. I also reviewed documentation from the patient's last ED visit 3 days ago, with a CT scan showing a 3 mm right UVJ stone. Urinalysis at that time did not show any signs of infection. IV access was established and labs were drawn. The patient was hydrated with a liter normal saline, and was administered IV Toradol for pain. Review of labs shows a mildly increased creatinine of 1.46, but minimally changed from his prior visit. Urinalysis again does not show any evidence for infection. Retroperitoneal ultrasound shows mild to moderate right hydroureteronephrosis. Upon reevaluation, the patient reported no pain or nausea. The case was discussed with Dr. Arriaga, ED attending physician, who also spoke with the patient and family. The patient was encouraged to contact Dr. Arcos' s office for further follow-up and management. I also asked our Advertising Space Clerk to call Dr. Arcos's office Monday morning regarding this case. The patient will be provided an additional prescription for OxyIR to get him through the weekend. He was instructed to return for uncontrollable pain, vomiting or developing fever. The patient was happy with plan of care, and voiced understanding of all discharge instructions. Medical Decision Patient has a documented 3 mm right UVJ stone. His ultrasound today shows persistent mild to moderate hydroureteronephrosis. The patient has had minimal increase in his creatinine level. Urinalysis does not show any signs of infection. I do feel that the patient is stable for outpatient urology management. The patient was given instructions to return for worsening symptoms. [place] Drug Monitoring Program Search Results: patient reviewed within database, no issues identified Medication Reconcilliation Current Medication List: was personally reviewed by me Blood Pressure Screening Patient's blood pressure: Normal blood pressure Impression Primary Impression: Ureteral calculus Departure Information Prescriptions Oxycodone Ir (Roxicodone Ir) 5 Mg Tab 1 TAB PO Q4H Y for Pain, #15 TAB For Initial Treatment Prov: Joshua Lynn PA 02/17/18 Referrals Luan Zapata M.D. (PCP) Patient Instructions My [facility]
[2018-02-20] MEDS ORDERED: TAMS0.4C38 PO (11:03)
[2018-02-20] MEDS ORDERED: OXYC-90 PO (11:03)
== END 2018-02-17 17:01 | disposition home or self-care (01) ==
LOC: C.EDB 14:38
DX: N20.1 Calculus of ureter (principal); C61 Malignant neoplasm of prostate; Z90.49 Acquired absence of other specified parts of digestive tract; I10 Essential (primary) hypertension; K44.9 Diaphragmatic hernia without obstruction or gangrene; Z79.82 Long term (current) use of aspirin; Z79.899 Other long term (current) drug therapy

== ENCOUNTER → 2018-02-19 | Outpatient (CLI) | payer OTHER ==
[~2018-02-19] MED LIST changes: -ONDA4TAB46 PO; +OXYC-90 PO; -[UNRECOGNIZED DRUG - OTHER] PO
--- NOTE | 2018-02-19 15:05 | DIAGNOSTIC IMAGING REPORT ---
KUB CLINICAL HISTORY: Kidney stone. COMPARISON STUDY: CT of the abdomen and pelvis February 14, 2018. FINDINGS: There has been slight distal migration of a 3 mm distal right ureteral calculus since CT of February 14, 2018. Additional pelvic calcifications were shown to represent phleboliths on prior exam. No additional urinary calculi are identified. The bowel gas pattern is normal. A moderate amount of stool within the colon is noted to IMPRESSION: Minimal distal migration of a 3 mm distal right ureteral calculus, now likely at the right ureterovesical junction, since prior CT. Electronically signed by: Stephen Mclain M.D. 02/19/2018 3:04 PM Dictated Date/Time: 02/19/2018 3:01 PM
== END | disposition home or self-care (01) ==
LOC: C.RAD 14:43
PROVIDERS: ATTEND Urology
DX: N20.1 Calculus of ureter (principal)

== ENCOUNTER → 2018-02-20 | Outpatient (CLI) | payer OTHER | END | disposition home or self-care (01) | LOC: C.LABSPEC 17:09 | PROVIDERS: ATTEND Urology | DX: N20.0 Calculus of kidney (principal) ==

== ENCOUNTER → 2018-02-23 | Day surgery (SDC) | payer OTHER ==
[2018-02-20 11:03] VITALS: Ht 177.8 cm; Wt 79.5 kg
--- NOTE | 2018-02-22 18:18 | DIAGNOSTIC IMAGING REPORT ---
KUB CLINICAL HISTORY: Kidney stone. COMPARISON STUDY: CT of the abdomen and pelvis February 14, 2018 and KUB February 19, 2018. FINDINGS: There has been slight distal migration of a 3 mm right ureteral calculus since KUB of February 19, 2018. This calculus is now likely at the ureterovesical junction. Additional pelvic calcifications reflect phleboliths. No additional urinary calculi are identified. IMPRESSION: Slight distal migration of a 3 mm calculus likely at the right ureterovesical junction. Electronically signed by: Stephen Mclain M.D. 02/22/2018 6:17 PM Dictated Date/Time: 02/22/2018 6:14 PM
[~2018-02-23] VITALS: Ht 177.8 cm; Wt 79.5 kg
[~2018-02-23] MED LIST changes: +ACETAMINOPHEN 325 MG TAB PO PRN; +ATROPINE SULFATE 0.1 MG/ML 5ML SYR IV PRN; +CIPROFLOXACIN 400MG / D5W IV SCH; +DEXAMETHASONE SOD INJ 4 MG/ML VIAL ONE; +EpHEDrine SULFATE INJ 50 MG/ML AMP IV PRN; +FENTANYL CITRATE INJ 50 MCG/1 ML 2 ML VIAL IV PRN; +FENTANYL CITRATE INJ 50 MCG/1 ML 2 ML VIAL ONE; +FLUMAZENIL 0.1 MG/1 ML 10 ML VIAL IV PRN; +LABETALOL HCL IV 5 MG/ML 20ML IV PRN; +LACTATED RINGER'S 1000ML 1,000 ML IV SCH; +LIDOCAINE HCL 2% 2 ML VIAL (20MG/ML) ONE; +MIDAZOLAM HCL 1 MG/ML 2ML VIAL ONE; +NALOXONE HCL 0.4 MG/1 ML VIAL/CARP IV PRN; +ONDANSETRON INJ 2 MG/ML 2 ML VIAL IV PRN; +ONDANSETRON INJ 2 MG/ML 2 ML VIAL ONE; -OXYC-737 PO; +OXYCODONE/ACETAMINOPHEN 5-325 TAB PO PRN; +PROMETHAZINE HCL INJ 12.5 MG in SODIUM CHLORIDE 0.9% 50ML 50 ML IV PRN; +PROPOFOL IV EMULSION 10 MG/ML 20 ML VIAL ONE; +SODIUM CHLORIDE 0.9% 1000ML 1,000 ML IV SCH
--- NOTE | 2018-02-23 07:23 | History & Physical Bridge Note ---
H&P Re-Evaluation Bridge Note: I have examined the patient, reviewed the History & Physical and in the interval since the performance of the History & Physical I have noted the following changes of clinical significance: No changes noted
--- NOTE | 2018-02-23 08:03 | Discharge Instructions-SurgCtr ---
Discharge Instructions Date of Service Feb 23, 2018. Visit Reason for Visit: Kidney Stone Discharge Discharge Diagnosis / Problem: kidney stone Discharge Goals Goal(s): Decrease discomfort, Improve function, Increase independence, Improve disease control Medications Stopped Medications Name(s): stopped all blood thinners 02/21/18 Activity Recommendations Activity Limitations: resume your previous activity Lifting Limitations: none Exercise/Sports Limitations: none May Resume Sexual Activity: when tolerated Shower/Bathe: no limitations Driving or Machine Use: resume 1 day after discharge Anesthesia . Post Anesthesia Instructions: If you have had General Anesthesia or IV Sedation: * Do not drive today. * Resume driving when surgeon permits. * Do not make important decisions or sign legal documents today. * Call surgeon for: 1. Temperature elevations greater than 101 degrees F. 2. Uncontrollable pain. 3. Excessive bleeding. 4. Persistent nausea and vomiting. 5. Medication intolerance (nausea, vomiting or rash). * For nausea and vomiting use only clear liquids such as: tea, soda, bouillon until nausea subsides, then gradually increase diet as tolerated. * If you have any concerns or questions, call your surgeon's office. If physician is unavailable and it is an emergency, call 911 or go to the nearest emergency room. . Diet Recommendations Home Diet: no limitations, resume previous diet Procedures Procedures Performed: Right Extracorporeal Shock Wave Lithotripsy Pending Studies Studies pending at discharge: no Medical Emergencies . Who to Call and When: Medical Emergencies: If at any time you feel your situation is an emergency, please call 911 immediately. . Non-Emergent Contact Non-Emergency issues call your: Urologist Call Non-Emergent contact if: you have a fever, temperature is above 101.5, your pain is not controlled, your pain is worsening . . "Provider Documentation" section prepared by Scotty Swenson. . [place] Drug Monitoring Program Search Results: patient reviewed within database, no issues identified
--- NOTE | 2018-02-23 08:16 | [facility] Operative Report ---
Operative Report Operative Date Feb 23, 2018. Pre-Operative Diagnosis Right Ureteral Calculi Post-Operative Diagnosis Same Procedure(s) Performed Right Extracorporeal Shock Wave Lithotripsy Surgeon Dr. Anila Bates MD [employer] Surgeon(s) None Estimated Blood Loss 0 Specimens None Drains None Anesthesia Type General Complication(s) none Disposition yes Recovery Room / PACU Description of Procedure The patient was identified in the preoperative holding area, appropriate informed consent was reviewed and completed and the patient was transported to the operating suite. Upon arrival appropriate preoperative antibiotics were administered and general anesthesia induced. The patient was placed in supine position and the stone was localized under fluoroscopy. A total of 3000 shocks were delivered to the stone. There appeared to be good fragmentation of the stone. Details of this procedure can be found on the [facility] information sheet. At the conclusion of the case the patient was extubated and taken to the PACU in stable condition. There were no complications. I attest to the content of the Intraoperative Record and any orders documented therein. Any exceptions are noted below.
[2018-02-23 08:45] VITALS: TEMP 36.4
--- NOTE | 2018-02-23 08:49 | Anesthesia Progress Nt - [facility] ---
Anesthesia Post Op Note Date & Time Feb 23, 2018 at 08:49 Vital Signs Pain Intensity: 0 Vital Signs Past 12 Hours Date Time Temp Pulse Resp B/P (MAP) Pulse Ox O2 Delivery O2 Flow Rate FiO2 02/23/18 08:45 36.4 61 12 132/87 100 Room Air 02/23/18 08:42 63 13 100 02/23/18 08:42 64 13 02/23/18 08:41 146/91 02/23/18 08:37 69 15 100 02/23/18 08:37 69 15 02/23/18 08:36 138/81 02/23/18 08:32 69 18 100 02/23/18 08:32 69 18 02/23/18 08:31 136/82 02/23/18 08:27 64 13 02/23/18 08:27 64 13 100 02/23/18 08:26 140/74 02/23/18 08:25 72 16 100 02/23/18 08:25 71 16 02/23/18 08:21 150/81 02/23/18 08:20 36.6 68 12 150/81 99 Mask 7 02/23/18 06:30 36.6 60 18 154/78 (103) 99 Room Air Notes Mental Status: alert / awake / arousable, participated in evaluation Pt Amnestic to Procedure: Yes Nausea / Vomiting: adequately controlled Pain: adequately controlled Airway Patency, RR, SpO2: stable & adequate BP & HR: stable & adequate Hydration State: stable & adequate Anesthetic Complications: no major complications apparent
[2018-02-23 09:14] VITALS: BP 149/85; PULSE 57; O2SAT 98
== END | disposition home or self-care (01) ==
LOC: X.SURG 06:10
PROVIDERS: ATTEND Urology
DX: N20.1 Calculus of ureter (principal); Z79.82 Long term (current) use of aspirin; Z79.899 Other long term (current) drug therapy; Z85.46 Personal history of malignant neoplasm of prostate

== ENCOUNTER 2019-12-05 20:34 | Observation (INO) ==
[2019-12-05] MEDS ORDERED: PANTOprazole 40 MG TAB PO STA (20:50)
[2019-12-05] MEDS ORDERED: ASPIRIN CHEW 324 MG PO STA (20:50)
[2019-12-05] MEDS ORDERED: ALUMINUM/MAGNESIUM SUSP 30 ML UDC PO STA (20:50)
--- NOTE | 2019-12-05 21:01 | Emergency Department Note ---
Impression & Plan Chest pain, Elevated troponin I level ED Provider Note NAME: EDMOND WOODARD AGE: 63 SEX: M : 1955 ARRIVES VIA: Walk-In INFORMANT: Patient, ED PROVIDER(S): Randy Frias DO CHIEF COMPLAINT: Chest pain HPI: The patient is a 63-year-old male who presented to the emergency department for an evaluation of chest pain. The patient states that he has been having intermittent episodes of chest pain over the last 2 to 3 days. The pain is somewhat worsened with exertion. He notices it as a pressure over the anterior chest. It does not radiate to his back or his neck. It is sometimes relieved with rest and sometimes worsened with exertion. He was noticing chest pain at rest today and it was very severe. For this reason he presented to the emergency. At this time the patient states his pain is moderately improved. He denies having any shortness of breath. He denies having any swelling in the legs. He is not taking any medication specifically to relieve this pain. He has not had similar symptoms in the past and does not have a history of a cardiac work-up. He was seen by his primary care physician a few months ago and diagnosed with hypertension. He was started on medications for hypertension. ROS: See above HPI for pertinent positives & negatives. A total of 10 systems reviewed and were otherwise negative. PAST MEDICAL HISTORY: See Below PAST SURGICAL HISTORY: See Below FAMILY HISTORY: See Below SOCIAL HISTORY: See Below HOME MEDICATIONS: See Below ALLERGIES: See Below VITALS: See Below PHYSICAL EXAMINATION: GENERAL: Patient is awake alert in no acute distress patient is resting comfortably and showing no signs of anxiety EYES: The conjunctivae are clear. The pupils are round and reactive. EARS, NOSE, MOUTH AND THROAT: The nose is without any evidence of any deformity. NECK: The neck is nontender and supple. RESPIRATORY: Normal respiratory effort is noted there is no evidence of wheezing rhonchi or rales CARDIOVASCULAR: Regular rate and rhythm noted there no murmurs rubs or gallops normal S1 normal S2. GASTROINTESTINAL: The abdomen is soft. Abdomen is nontender. MUSCULOSKELETAL/EXTREMITIES: There is no evidence of gross deformity full range of motion is noted in the hips and shoulders. SKIN: Trace pedal edema was noted. NEUROLOGIC: Patient is awake alert and oriented x3 strength is symmetric patellar reflexes are 2+ bilaterally MEDICAL DECISION MAKING: The patient is a 63-year-old male who presented to the emergency department for an evaluation of chest pain. The patient describes left-sided chest pain which is worsened with exertion. He presented to the emergency department with significantly improved chest pain. I discussed the patient's laboratory and radiographic studies with him. I also discussed the limitations of the emergency department work-up for chest pain with him. The patient was found to have some abnormalities on the lateral leads of his EKG but it does appear to be consistent with his previous EKG. The patient was treated with aspirin as well as Maalox in the emergency department. At this time he is pain-free. The patient was found to have a slight elevation in his troponin. Given his exertional chest pain I was very concerned about this patient and feel he may be at high risk. For this reason I will discuss his case with the on-call [facility] hospitalist group. They will evaluate the patient in the emergency department for further management and disposition. I discussed this with the patient and he was agreeable to this plan. Triage Nursing notes reviewed. Prior medical records reviewed Vital Signs: reviewed and remarkable for elevated blood pressure Differential diagnosis: Cardiac ischemia, aortic dissection, pulmonary embolism, pneumothorax, pn eumonia, pericarditis, myocarditis, esophageal rupture, GERD, cholecystitis, pancreatitis, musculoskeletal, as well as other pathologies. ER treatment provided: See below Diagnostics interpreted by me: ECG: EKG was obtained in the emergency department. My interpretation is normal sinus rhythm at 68 bpm. There is no ectopy. There was slight ST segment abnormalities noted in the lateral leads. This was compared to a tracing from February 14, 2018. There is no specific changes noted. Cardiac Monitoring: An order was placed for continuous cardiac monitoring. The monitor shows a rate of 85 with sinus rhythm. Laboratory studies: As stated above and show below. Imaging studies: See below Consultation(s): 2229: The [facility] hospitalist was notified about the patient. Past Med/Surg History Medical History 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) Essential (primary) hypertension (Chronic) Impotence, organic (Chronic) Internal hemorrhoids Kidney stone (Chronic) Nocturia (Chronic) Other hemorrhoids Personal history of irradiation (Chronic) Radiation proctitis (Chronic) Urinary incontinence (Chronic) Family History Father Diabetes Hypertension Prostate cancer Mother Cardiac disorder Kidney stones Breast cancer Social History Preferred Language: Nigerian Beliefs That Will Affect Care: None marital status: Current Living Situation: Spouse Feels Safe at Home: Yes Smoking Status: Never smoker Hx Alcohol Use: No Hx Substance Use: No Allergies Allergies Allergy/AdvReac Type Severity Reaction Status Date / Time No Known Drug Allergies Allergy Verified 12/05/19 21:39 Home Meds Home Medications Medication Instructions Recorded Confirmed ascorbic acid (vitamin C) 500 mg 500 mg PO QAM tab 12/25/18 12/05/19 tablet ginkgo biloba 40 mg tablet 40 mg PO QAM tab 09/10/19 12/05/19 amlodipine 5 mg PO QAM 12/05/19 12/05/19 calcium citrate 250 mg PO QAM 12/05/19 12/05/19 cholecalciferol (vitamin D3) 25 mcg PO QAM 12/05/19 12/05/19 garlic 1,000 mg PO QAM 12/05/19 12/05/19 zinc 50 mg PO QAM 12/05/19 12/05/19 Results & Data (ED) Vital Signs Vital Signs - 24 hr 12/05/19 20:36 12/05/19 20:49 12/05/19 20:50 Temperature 36.7 C Temperature Source Oral Pulse Rate 68 63 63 Pulse Rate from SpO2 Sensor 62 63 Respiratory Rate 20 19 14 Respiratory Depth Normal Blood Pressure 155/78 H Blood Pressure Mean 103 Pulse Oximetry 96 97 98 Oxygen Delivery Method Room Air Room Air Sepsis Recent Fever Within 48 Hours No Sepsis New/Unexplained Change in Mental Status No Sepsis Action Taken by Nursing No Action Required 12/05/19 21:00 12/05/19 21:10 12/05/19 21:20 Temperature Temperature Source Pulse Rate 64 60 64 Pulse Rate from SpO2 Sensor 64 59 L 65 Respiratory Rate 19 17 17 Respiratory Depth Blood Pressure Blood Pressure Mean Pulse Oximetry 97 98 98 Oxygen Delivery Method Sepsis Recent Fever Within 48 Hours Sepsis New/Unexplained Change in Mental Status Sepsis Action Taken by Nursing 12/05/19 21:30 12/05/19 21:40 12/05/19 21:50 Temperature Temperature Source Pulse Rate 62 58 L 60 Pulse Rate from SpO2 Sensor 62 57 L 59 L Respiratory Rate 16 15 18 Respiratory Depth Blood Pressure Blood Pressure Mean Pulse Oximetry 98 97 97 Oxygen Delivery Method Sepsis Recent Fever Within 48 Hours Sepsis New/Unexplained Change in Mental Status Sepsis Action Taken by Nursing 12/05/19 22:00 12/05/19 22:10 12/05/19 22:20 Temperature Temperature Source Pulse Rate 58 L 57 L 55 L Pulse Rate from SpO2 Sensor 58 L 57 L 55 L Respiratory Rate 20 19 20 Respiratory Depth Blood Pressure Blood Pressure Mean Pulse Oximetry 97 97 97 Oxygen Delivery Method Sepsis Recent Fever Within 48 Hours Sepsis New/Unexplained Change in Mental Status Sepsis Action Taken by Nursing 12/05/19 22:30 12/05/19 22:40 12/05/19 22:50 Temperature Temperature Source Pulse Rate 56 L 58 L 58 L Pulse Rate from SpO2 Sensor 56 L 58 L 59 L Respiratory Rate 25 H 16 25 H Respiratory Depth Blood Pressure Blood Pressure Mean Pulse Oximetry 98 99 97 Oxygen Delivery Method Sepsis Recent Fever Within 48 Hours Sepsis New/Unexplained Change in Mental Status Sepsis Action Taken by Nursing 12/05/19 23:00 12/05/19 23:10 12/05/19 23:20 Temperature Temperature Source Pulse Rate 62 62 58 L Pulse Rate from SpO2 Sensor Respiratory Rate 20 18 17 Respiratory Depth Blood Pressure Blood Pressure Mean Pulse Oximetry Oxygen Delivery Method Sepsis Recent Fever Within 48 Hours Sepsis New/Unexplained Change in Mental Status Sepsis Action Taken by Nursing 12/05/19 23:30 12/05/19 23:31 12/05/19 23:32 Temperature Temperature Source Pulse Rate 63 59 L 63 Pulse Rate from SpO2 Sensor Respiratory Rate 16 17 18 Respiratory Depth Blood Pressure 168/97 H Blood Pressure Mean 112 Pulse Oximetry 97 Oxygen Delivery Method Room Air Sepsis Recent Fever Within 48 Hours Sepsis New/Unexplained Change in Mental Status Sepsis Action Taken by Nursing 12/05/19 23:40 Temperature Temperature Source Pulse Rate 57 L Pulse Rate from SpO2 Sensor Respiratory Rate 17 Respiratory Depth Blood Pressure Blood Pressure Mean Pulse Oximetry Oxygen Delivery Method Sepsis Recent Fever Within 48 Hours Sepsis New/Unexplained Change in Mental Status Sepsis Action Taken by Skilled Nursing Medications Current Medication List: was personally reviewed by me Laboratory Data Attestation: I reviewed the patient's lab results. Result diagrams: 12/06/19 06:18 12/06/19 06:18 Lab Results 12/05/19 12/05/19 12/05/19 Range/Units 21:32 21:32 21:32 WBC 6.50 (4.8-10.8) K/uL RBC 4.87 (4.7-6.1) M/uL Hgb 14.9 (14.0-18.0) g/dL Hct 44.0 (42-52) % MCV 90.3 (80-100) fL MCH 30.6 (25-34) pg MCHC 33.9 (32-36) g/dL RDW Std Deviation 42.5 (36.4-46.3) fL RDW Coeff of Tati 13.0 (11.5-14.5) % Plt Count 181 (130-400) K/uL MPV 10.7 H (7.4-10.4) fL Immature Gran % (Auto) 0.2 % Neut % (Auto) 60.2 % Lymph % (Auto) 29.4 % [place] % (Auto) 8.8 % Eos % (Auto) 1.2 % Baso % (Auto) 0.2 % Immature Gran # (Auto) 0.01 (0.00-0.02) K/uL Neut # (Auto) 3.92 (1.4-6.5) K/uL Lymph # (Auto) 1.91 (1.2-3.4) K/uL [place] # (Auto) 0.57 (0.11-0.59) K/uL Eos # (Auto) 0.08 (0-0.5) K/uL Baso # (Auto) 0.01 (0-0.2) K/uL PT 10.7 (9.0-12.0) Seconds INR 1.0 (0.9-1.1) APTT 29.2 (21.0-31.0) Seconds PTT Ratio 1.0 Sodium 140 (136-145) mmol/L Potassium 3.7 (3.5-5.1) mmol/L Chloride 110 H (98-107) mmol/L Carbon Dioxide 25 (21-32) mmol/L Anion Gap 5.0 (3-11) BUN 20 H (7-18) mg/dl Creatinine 0.98 (0.6-1.4) mg/dl Est Cr Clr Drug Dosing 83.2 ml/min Est GFR ( Amer) 95.4 Est GFR (Non-Af Amer) 82.3 BUN/Creatinine Ratio 20.6 H (10-20) Glucose 118 H (70-99) mg/dl Calcium 9.0 (8.5-10.1) mg/dl Total Bilirubin 0.3 (0.2-1) mg/dl AST 19 (15-37) U/L ALT 29 (12-78) U/L Alkaline Phosphatase 53 (45-117) U/L Troponin I 0.105 H* (0-0.045) ng/ml Total Protein 7.6 (6.4-8.2) gm/dl Albumin 3.9 (3.4-5.0) gm/dl Globulin 3.7 (2.5-4.0) gm/dl Albumin/Globulin Ratio 1.1 (0.9-2) Lipase 131 (73-393) U/L Administered Medications Aspirin (Ecotrin Ectab) 81 mg PO [facility] Stop: 01/05/20 08:59 Last Admin: 12/06/19 08:28 Dose: 81 mg Documented by: [id number] Atorvastatin Calcium (Lipitor) 40 mg PO [facility] Stop: 01/05/20 08:59 Last Admin: 12/06/19 09:42 Dose: 40 mg Documented by: [id number] Heparin Sodium/Dextrose (Heparin Sodium/Dextrose) 25,000 units in 500 mls @ 0 mls/hr IV .Q0M [facility]; Protocol Stop: 01/04/20 23:54 Last Titration: 12/06/19 11:43 Dose: 0 units/hr, 0 mls/hr Documented by: [id number] Cosigned by: [id number] Titration: 12/06/19 08:28 Dose: 1,250 units/hr, 25 mls/hr Documented by: [id number] Cosigned by: [id number] Titration: 12/06/19 07:54 Dose: 0 units/hr, 0 mls/hr Documented by: [id number] Cosigned by: [id number] Titration: 12/06/19 06:55 Dose: 1,400 units/hr, 28 mls/hr Documented by: [id number] Cosigned by: [id number] Admin: 12/06/19 00:09 Dose: 1,400 units/hr, 28 mls/hr Documented by: [id number] Cosigned by: [id number] Potassium Chloride/Sodium Chloride (Normal Saline W/20 Meq Kcl) 20 meq in 1,000 mls @ 100 mls/hr IV .Q10H [facility] Stop: 01/05/20 00:03 Last Infusion: 12/06/19 11:44 Dose: 0 mls/hr Documented by: [id number] Admin: 12/06/19 08:28 Dose: 100 mls/hr Documented by: [id number] Infusion: 12/06/19 08:28 Dose: 100 mls/hr Documented by: [id number] Admin: 12/06/19 00:09 Dose: 100 mls/hr Documented by: [id number] Pantoprazole Sodium (Protonix) 40 mg PO QAM [facility] Stop: 12/10/19 08:59 Last Admin: 12/06/19 09:42 Dose: 40 mg Documented by: [id number] Discontinued Medications Al Hydrox/Mg Hydrox/Simethicone (Maalox) 30 ml PO NOW STA Stop: 12/05/19 20:51 Last Admin: 12/05/19 21:20 Dose: 30 ml Documented by: [id number] Aspirin (Aspirin) 324 mg PO NOW STA Stop: 12/05/19 20:51 Last Admin: 12/05/19 21:20 Dose: 324 mg Documented by: [id number] Potassium Chloride (K Idris / Wtr) 10 meq in 100 mls @ 100 mls/hr IV Q1H [facility] Stop: 12/06/19 07:50 Last Admin: 12/06/19 05:30 Dose: Not Given Documented by: [id number] Nitroglycerin (Nitro-Bid 2%) 1 inch EXT Q6 STA Stop: 12/05/19 23:56 Last Admin: 12/06/19 00:09 Dose: 1 inch Documented by: [id number] Pantoprazole Sodium (Protonix) 40 mg PO NOW STA Stop: 12/05/19 20:51 Last Admin: 12/05/19 21:20 Dose: 40 mg Documented by: [id number] Potassium Chloride (Klor-Con M20) 20 meq PO NOW STA Stop: 12/06/19 04:09 Last Admin: 12/06/19 05:30 Dose: 20 meq Documented by: [id number] Simvastatin (Zocor) 20 mg PO NOW STA Stop: 12/05/19 23:59 Last Admin: 12/06/19 02:09 Dose: 20 mg Documented by: [id number] Imaging Data Radiologist's Impression: XR chest 1V portable CLINICAL HISTORY: Atypical chest pain COMPARISON STUDY: 10/20/2017 FINDINGS: The cardiac and mediastinal contours are normal. There is no evidence of focal pulmonary consolidation. There is no evidence of failure. No pleural effusions are visualized.[ IMPRESSION: No active disease in the chest. ACT 112: Negative or not required by law. Electronically signed by: Coleman Rooney M.D. 12/05/2019 9:01 PM Dictated: 12/05/192100 Transcribed: 12/05/192100 Blood Pressure Blood Pressure Findings: Elevated blood pressure Blood Pressure Disposition: further management by hospitalist Discharge Plan Visit Data *Final* Discharge Date/Time: 12/06/19 00:22 Chief Complaint: Chest Pain Stated Complaint: CHEST PAIN ED Provider: Randy Frias Discharge Problem: Chest pain, Elevated troponin I level Patient Disposition: Admitted As Inpatient Condition: Good Discharge Instructions Interventions: ED Discharge Assessment Last Done: 12/06/19 00:22 Discharge Problem: Chest pain Qualifiers: Chest pain type: unspecified Qualified Code(s): R07.9 - Chest pain, unspecified
[2019-12-05 21:44] LABS: Basophils # (auto) 0.01 K/uL (0-0.2); Basophils % (auto) 0.2 %; Eosinophils # (auto) 0.08 K/uL (0-0.5); Eosinophils % (auto) 1.2 %; Hemoglobin 14.9 g/dL (14.0-18.0); Immature Granulocytes # (auto) 0.01 K/uL (0.00-0.02); Immature Granulocytes % (auto) 0.2 %; Lymphocytes # (auto) 1.91 K/uL (1.2-3.4); Lymphocytes % (auto) 29.4 %; Mean Corpuscular Hemoglobin 30.6 pg (25-34); Mean Corpuscular Hgb Conc 33.9 g/dL (32-36); Mean Corpuscular Volume 90.3 fL (80-100); Mean Platelet Volume 10.7 fL (7.4-10.4); Monocytes # (auto) 0.57 K/uL (0.11-0.59); Monocytes % (auto) 8.8 %; Neutrophils # (auto) 3.92 K/uL (1.4-6.5); Neutrophils % (auto) 60.2 %; Platelet Count 181 K/uL (130-400); RDW Standard Deviation 42.5 fL (36.4-46.3); Red Blood Count 4.87 M/uL (4.7-6.1)
[2019-12-05 22:01] LABS: Albumin Level 3.9 gm/dl (3.4-5.0); BUN Creatinine Ratio 20.6 (10-20); Creatinine Clr Calc Pharmacy 83.2 ml/min; Est GFR (African American) 95.4; Est GFR (Non-African American) 82.3; Partial Thromboplastin Time 29.2 Seconds (21.0-31.0); Potassium 3.7 mmol/L (3.5-5.1); Prothrombin Time 10.7 Seconds (9.0-12.0)
[2019-12-05 22:08] LABS: Albumin Globulin Ratio 1.1 (0.9-2); Bilirubin,Total 0.3 mg/dl (0.2-1); Globulin 3.7 gm/dl (2.5-4.0); Total Protein 7.6 gm/dl (6.4-8.2); Troponin I 0.105 ng/ml (0-0.045)
[2019-12-05] MEDS ORDERED: NITROGLYCERIN 2% OINTMENT 30GM TUBE EXT STA (23:55)
[2019-12-05] MEDS ORDERED: HEPARIN SODIUM/DEXTROSE 25,000 UNITS/500 ML BAG IV SCH (23:55)
[2019-12-05] MEDS ORDERED: SIMVASTATIN 20 MG TAB PO STA (23:58)
--- NOTE | 2019-12-06 00:07 | History & Physical Report ---
Date of Service December 06, 2019 Assessment & Plan (1) NSTEMI, initial episode of care: Patient is a 63 year old male with PMHx hypertension, GERD, and prostate Cx s/p radiation who presents with 2 day history of chest pain. ED Course: ASA 324, Maalox, Protonix NSTEMI -EKG NSR 68bpm, minimal ST depression in lateral leads V4-6 -Troponin Elevated 0.105, repeat trops ordered -HEART score 5 -Hep gtt -ASA 325 in ED, ASA 81mg qAM -Simvastatin 20mg now, then qAM after -Nitro paste -As patients rate averages around 55-65 will not give BB at this time -Hold home amlodipine -Cardiology consulted -NPO, anticipate cath in AM -NSS +20meq K 100ml/hr GERD -Protonix 40mg IV QD HTN -Holding pt home amlodipine -Nitro paste q6h Dispo: Telemetry FEN: NPO after midnight, NSS +20meq K 100ml/hr DVT: Heparin gtt Code: Full (2) Unstable angina: (3) Chest pain: (4) Elevated troponin I level: (5) GERD (gastroesophageal reflux disease): (6) Essential (primary) hypertension: History of Present Illness Chief Complaint: Exertional Chest Pain Primary Care Provider: Luan Zapata MD Patient is a 63 year old male with PMHx hypertension, GERD, and prostate Cx s/p radiation who presents with 2 day history of chest pain. Patient states that he first noted the chest pain on Monday while he was mowing his grass. He described it initially as a tightness/discomfort located in the mid-sternum. He notes the pain lasted 1 hour while he finished mowing the grass and then another 30 minutes afterwards while resting. He denies any SOB, diaphoresis, or dizziness. He notes that since then, he has also had 5-6 instances where he had similar pain, though several of these would be unprovoked where he would just be sitting at his desk. He notes again that the pain is a mid-sternum tightness that lasts 20-30 minutes. This evening he states that he was moving bags of trash (15lb each) when he started to notice the pain again. While returning up from steps he states that the pain elevated to an 8/10 and that he had to stop and sit down. He still denied any SOB or diaphoresis. He does note that at this time though the pain felt as though it radiated into his mid back. He states that during these incidents, belching appeared to help dissipate some of the pain. He notes that he may have had a similar experience while really exerting himself in the past year, but is unsure if it was the same type of pain. He notes that he has a family history of heart attacks with 3-4 of his great uncles passing away from heart attacks between 40-50 years old. He states his grandfa ther had a stroke at 60 and his father a stroke but unsure of age. Patient smoked what he recalls 10 packs total in his lifetime (between ages [age]), has a glass of wine every 3 months, and does not use elicit drugs. Currently patient denies any chest pain, pressure, SOB, diaphoresis, dizziness, abdominal pain, nausea, vomiting, hematochezia, melena, dysuria. Allergies Allergy/AdvReac Type Severity Reaction Status Date / Time No Known Drug Allergies Allergy Verified 12/05/19 21:39 Home Medications Home Medications Medication Instructions Recorded Confirmed Type ascorbic acid (vitamin C) 500 mg 500 mg PO QAM tab 12/25/18 12/05/19 History tablet ginkgo biloba 40 mg tablet 40 mg PO QAM tab 09/10/19 12/05/19 History amlodipine 5 mg PO QAM 12/05/19 12/05/19 History calcium citrate 250 mg PO QAM 12/05/19 12/05/19 History cholecalciferol (vitamin D3) 25 mcg PO QAM 12/05/19 12/05/19 History garlic 1,000 mg PO QAM 12/05/19 12/05/19 History zinc 50 mg PO QAM 12/05/19 12/05/19 History aspirin 81 mg PO QAM #30 tab 12/06/19 Rx atorvastatin 40 mg PO QAM #30 tab 12/06/19 Rx lisinopril [Zestril] 5 mg PO QAM #30 tab 12/06/19 Rx metoprolol tartrate 12.5 mg PO QAM #30 tab 12/06/19 Rx Past Med/Surg History Medical History 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) Essential (primary) hypertension (Chronic) Impotence, organic (Chronic) Internal hemorrhoids Kidney stone (Chronic) Nocturia (Chronic) Other hemorrhoids Personal history of irradiation (Chronic) Radiation proctitis (Chronic) Urinary incontinence (Chronic) Family History Father Diabetes Hypertension Prostate cancer Mother Cardiac disorder Kidney stones Breast cancer Social History Preferred Language: Turkish Beliefs That Will Affect Care: None marital status: Current Living Situation: Spouse Feels Safe at Home: Yes Smoking Status: Never smoker Hx Alcohol Use: No Hx Substance Use: No Review of Systems Constitutional: no fever, no chills, no fatigue and no weakness Eyes: no worsening vision Ear, Nose, Mouth, Throat: no dizziness Respiratory: no cough, no dyspnea, no dyspnea on exertion and no pain on inspiration Cardiovascular: + chest pain at rest (previously, not current) and + chest pain with activity (previously, not current); no chest pain, no radiating jaw, neck or arm pain, no dyspnea, no dyspnea on exertion, no palpitations, no lightheadedness and no edema Additional Comments: Noted previous pain radiation to his back between shoulder blades, not current. Gastrointestinal: + belching; no abdominal pain, no nausea, no vomiting, no c onstipation and no diarrhea/loose stools Genitourinary: no dysuria and no hematuria Musculoskeletal: no back pain and no body aches Integumentary: no rash Neurologic: no falls Psychiatric: no behavioral changes Physical Exam Constitutional: WD/WN, vitals as above Eyes: PERRL, conjunctivae normal, anicteric sclerae ENMT: external ear and nose normal, oropharynx normal Neck: trachea midline, no thyromegaly Respiratory: normal respiratory effort, lungs clear to auscultation Cardiovascular: Rate/Rhythm: regular rate and regular rhythm Heart Sounds: normal S1 and normal S2; no murmur Palpation: normal PMI Vessels: normal peripheral pulses; no JVD and no carotid bruit Extremities: normal capillary refill; no calf tenderness and no pedal edema No reproducible pain upon palpation of chest wall Chest (Breasts): Chest: normal inspection of chest Gastrointestinal (Abdomen): normal bowel sounds, soft, nontender, no hepatosplenomegaly Musculoskeletal: no cyanosis or clubbing, extremities motor strength 5/5 Skin: no rashes, warm and dry Neurologic: PERRL, EOMI, accommodation nl, no face palsy, no dysarthria Psychiatric: A+Ox3, euthymic affect Results & Data Results & Data ([facility]) Vital Signs (Past 12 Hours) Vital Signs Temp Pulse Resp BP Pulse Ox 12/05/19 23:32 63 25 H 97 12/05/19 23:31 59 L 17 168/97 H 12/05/19 23:30 63 16 12/05/19 23:20 58 L 17 12/05/19 23:10 62 18 12/05/19 23:00 62 20 12/05/19 22:50 58 L 25 H 97 12/05/19 22:40 58 L 16 99 12/05/19 22:30 56 L 25 H 98 12/05/19 22:20 55 L 20 97 12/05/19 22:10 57 L 19 97 12/05/19 22:00 58 L 20 97 12/05/19 21:50 60 18 97 12/05/19 21:40 58 L 15 97 12/05/19 21:30 62 16 98 12/05/19 21:20 64 17 98 12/05/19 21:10 60 17 98 12/05/19 21:00 64 19 97 12/05/19 20:50 63 14 98 12/05/19 20:49 63 19 97 12/05/19 20:36 36.7 C 68 20 155/78 H 96 Code Status & VTE Plan VTE Prophylaxis Plan VTE Prophylaxis will be ordered: Yes Supervising Physician Co-Signing Physician Notes Attending addendum: I have physically seen this patient, have supervised the medical residents activities, and agree with the H&P unless as otherwise noted. Assessment and Plan: Non-STEMI/unstable angina/hypertension- The patient will be admitted to telemetry for serial cardiac enzymes, serial EKG's, cardiac rhythm monitoring and a 2-D echocardiogram with Dopplers. Hold amlodipine. Given loading dose of aspirin 325 mg in the ED, and will continue 81 mg every morning. Nitropaste 1 inch to anterior chest wall every 6 hours. Hold amlodipine. NSS + KCl 20 mEq at 100 mils per hour. Heparin drip- Consult cardiology. Remaining orders and notations as noted. PG Care Time/CCT Total # of Minutes Spent Total Time Spent with Patient: Total time spent is greater than 50% in coordination of care (as documented) at patient's floor/unit and/or counseling patient: Coding Level of Care Code 55479 Initial Inpt Care Lvl 3 Diagnoses NSTEMI, initial episode of care I21.4 Unstable angina I20.0 Chest pain R07.9 Chest pain type: unspecified Elevated troponin I level R79.89 GERD (gastroesophageal reflux disease) K21.9 Essential (primary) hypertension I10 Resident Activity Tracking Resident Involvement: Resident Care Provided Care Provided: Adult Hospital Medicine (1) Chest pain Chest pain type: unspecified Qualified Code(s): R07.9 - Chest pain, unspecified
[2019-12-06] MEDS: NSS + 20MEQ KCL 20 MEQ/1,000 ML BAG IV SCH ×2 (00:09→08:28)
[2019-12-06 01:31] LABS: Basophils # (auto) 0.02 K/uL (0-0.2); Basophils % (auto) 0.3 %; Eosinophils # (auto) 0.06 K/uL (0-0.5); Hematocrit (blood only) 42.6 % (42-52); Hemoglobin 14.3 g/dL (14.0-18.0); Immature Granulocytes # (auto) 0.01 K/uL (0.00-0.02); Immature Granulocytes % (auto) 0.2 %; Lymphocytes # (auto) 1.88 K/uL (1.2-3.4); Mean Corpuscular Hemoglobin 30.4 pg (25-34); Mean Corpuscular Hgb Conc 33.6 g/dL (32-36); Mean Corpuscular Volume 90.6 fL (80-100); Mean Platelet Volume 10.8 fL (7.4-10.4); Monocytes # (auto) 0.42 K/uL (0.11-0.59); Monocytes % (auto) 7.2 %; Neutrophils # (auto) 3.48 K/uL (1.4-6.5); Neutrophils % (auto) 59.3 %; Platelet Count 180 K/uL (130-400); RDW Standard Deviation 43.1 fL (36.4-46.3); White Blood Count 5.87 K/uL (4.8-10.8)
[2019-12-06 01:47] LABS: Albumin Level 3.6 gm/dl (3.4-5.0); BUN Creatinine Ratio 20.6 (10-20); Calcium 8.6 mg/dl (8.5-10.1); Creatinine Clr Calc Pharmacy 98.3 ml/min; Est GFR (African American) 109.3; Est GFR (Non-African American) 94.3; Potassium 3.9 mmol/L (3.5-5.1)
[2019-12-06 02:03] LABS: Albumin Globulin Ratio 1.1 (0.9-2); Bilirubin,Total 0.2 mg/dl (0.2-1); Globulin 3.3 gm/dl (2.5-4.0); Total Protein 6.9 gm/dl (6.4-8.2); Troponin I 0.201 ng/ml (0-0.045)
[2019-12-06] MEDS ORDERED: POTASSIUM CHLORIDE / WTR 10 MEQ/100 ML PLCT IV SCH (03:51)
[2019-12-06] MEDS ORDERED: POTASSIUM CHLORIDE 20 MEQ TABCR PO STA (04:08)
[2019-12-06 06:32] LABS: Basophils # (auto) 0.02 K/uL (0-0.2); Basophils % (auto) 0.4 %; Eosinophils # (auto) 0.08 K/uL (0-0.5); Eosinophils % (auto) 1.4 %; Hemoglobin 12.9 g/dL (14.0-18.0); Immature Granulocytes # (auto) 0.01 K/uL (0.00-0.02); Immature Granulocytes % (auto) 0.2 %; Lymphocytes % (auto) 28.8 %; Mean Corpuscular Hemoglobin 29.9 pg (25-34); Mean Corpuscular Hgb Conc 33.1 g/dL (32-36); Mean Corpuscular Volume 90.5 fL (80-100); Mean Platelet Volume 10.4 fL (7.4-10.4); Monocytes # (auto) 0.47 K/uL (0.11-0.59); Monocytes % (auto) 8.5 %; Neutrophils # (auto) 3.38 K/uL (1.4-6.5); Neutrophils % (auto) 60.7 %; Platelet Count 159 K/uL (130-400); RDW Coefficient of Variation 12.9 % (11.5-14.5); RDW Standard Deviation 42.7 fL (36.4-46.3); Red Blood Count 4.31 M/uL (4.7-6.1); White Blood Count 5.56 K/uL (4.8-10.8)
[2019-12-06 06:50] LABS: Partial Thromboplastin Ratio 2.9
[2019-12-06 07:07] LABS: Albumin Level 3.2 gm/dl (3.4-5.0); BUN Creatinine Ratio 17.3 (10-20); Calcium 8.2 mg/dl (8.5-10.1); Creatinine Clr Calc Pharmacy 92.7 ml/min; Est GFR (African American) 106.7; Est GFR (Non-African American) 92.1; Magnesium 2.2 mg/dl (1.8-2.4)
[2019-12-06 07:12] LABS: Bilirubin,Total 0.6 mg/dl (0.2-1); Globulin 3.2 gm/dl (2.5-4.0); Phosphorus 2.7 mg/dl (2.5-4.9); Total Protein 6.4 gm/dl (6.4-8.2)
[2019-12-06 07:34] LABS: Estimated Average Glucose 111 mg/dl; Hemoglobin A1C 5.5 % (4.5-5.6)
[2019-12-06] MEDS ORDERED: PANTOprazole 40 MG TAB PO SCH (09:00)
[2019-12-06] MEDS ORDERED: ASPIRIN 81 MG ECTAB PO SCH (09:00)
[2019-12-06] MEDS ORDERED: ATORVASTATIN 40 MG TAB PO SCH (09:00)
--- NOTE | 2019-12-06 09:35 | Cardiology Consultation ---
Date of Consultation December 06, 2019 Assessment & Plan (1) Acute coronary syndrome: Luan Damon is a 63y/o M with PMH significant for HTN, GERD, and Prostate CA; who presented to the hospital for evaluation of chest tightness present on exertion over the last two days. Acute Coronary Syndrome: - somewhat typical chest pain description present over the last two days with exertional worsening - EKG overnight no ST elevations/depressions, demonstrating sinus bradycardia - initial troponin 0.105 with rise to 0.442 overnight - patient currently asymptomatic; will proceed with Cardiac Catheterization, Dr. Currie made aware of case - will start 12.5 Metoprolol tartate, 5mg Lisinopril, Atorvastatin 40mg, and DAPT - discontinue simvastatin, and amlodipine Supervising Physician Co-Signing Physician Notes Patient seen and examined with Dr. Bañuelos. History concerning for an acute coronary syndrome. Patient currently painfree. Medication changes as above. Proceed with urgent cardiac catheterization. History of Present Illness Attending Physician: David Gore, History of Present Illness Luan Damon is a 63y/o M with PMH significant for HTN, GERD, and Prostate CA; who presented to the hospital for evaluation of chest tightness present on exertion over the last two days. Two days ago while mowing the lawn, he noticed that he was having increasing chest pain and tightness, that was persisted over several hours into the night before relenting. Then throughout the day yesterday he noticed he was continuing to have chest pain and tightness under his chest bone, this did not radiate to his arm or his jaw but worsened with exertion, and would last approximately 20 minutes at at time. After this tightness worsened to the point that he had to sit down with carrying of two light trash bags last night, he decided that it was time to be evaluated at the hospital. He describes the chest tightness as if he was hiking [id number] above see level. Has extensive distant family history of cardiac disease, with only first degree relative with known heart disease being his father; was never a smoker. Denies diaphoresis, nausea, vomiting, peripheral edema, headaches, dizziness, and palpitations; endorses chest pain/tightness, and dyspnea. Allergies Allergy/AdvReac Type Severity Reaction Status Date / Time No Known Drug Allergies Allergy Verified 12/05/19 21:39 Home Medications Home Medications Medication Instructions Recorded Confirmed Type ascorbic acid (vitamin C) 500 mg 500 mg PO QAM tab 12/25/18 12/05/19 History tablet ginkgo biloba 40 mg tablet 40 mg PO QAM tab 09/10/19 12/05/19 History amlodipine 5 mg PO QAM 12/05/19 12/05/19 History calcium citrate 250 mg PO QAM 12/05/19 12/05/19 History cholecalciferol (vitamin D3) 25 mcg PO QAM 12/05/19 12/05/19 History garlic 1,000 mg PO QAM 12/05/19 12/05/19 History zinc 50 mg PO QAM 12/05/19 12/05/19 History Patient History Medical History 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) Essential (primary) hypertension (Chronic) Impotence, organic (Chronic) Internal hemorrhoids Kidney stone (Chronic) Nocturia (Chronic) Other hemorrhoids Personal history of irradiation (Chronic) Radiation proctitis (Chronic) Urinary incontinence (Chronic) Family History Father Diabetes Hypertension Prostate cancer Mother Cardiac disorder Kidney stones Breast cancer Social History Preferred Language: Slovenian Beliefs That Will Affect Care: None marital status: Current Living Situation: Spouse Feels Safe at Home: Yes Smoking Status: Never smoker Hx Alcohol Use: No Hx Substance Use: No Review of Systems Review of Systems: All systems reviewed & are unremarkable except as noted in HPI & below Physical Exam Constitutional: WD/WN, vitals as above Eyes: PERRL, conjunctivae normal, anicteric sclerae ENMT: external ear and nose normal, oropharynx normal Neck: normal visual inspection Cardiovascular: Rate/Rhythm: regular rate and regular rhythm Heart Sounds: normal S1 and normal S2; no gallop, no murmur and no cardiac rub Vessels: normal peripheral pulses; no JVD Extremities: no pedal edema Gastrointestinal (Abdomen): normal bowel sounds, soft, nontender, no hepatosplenomegaly Skin: no rashes, warm and dry Lymphatic: no cervical or axillary lymphadenopathy Results & Data ([facility]) Vital Signs (Past 12 Hours) Vital Signs Temp Pulse Pulse Resp BP BP Pulse Ox 12/06/19 07:38 36.6 C 52 L 17 108/48 L 95 12/06/19 03:49 36.4 C L 50 L 18 111/61 97 12/06/19 00:52 36.3 C L 56 L 146/87 H 98 12/06/19 00:50 56 L 12/06/19 00:20 56 L 16 160/95 H 12/06/19 00:10 57 L 17 12/06/19 00:00 54 L 18 12/05/19 23:50 56 L 16 12/05/19 23:40 57 L 17 12/05/19 23:32 63 18 97 12/05/19 23:31 59 L 17 168/97 H 12/05/19 23:30 63 16 12/05/19 23:20 58 L 17 12/05/19 23:10 62 18 12/05/19 23:00 62 20 12/05/19 22:50 58 L 25 H 97 12/05/19 22:40 58 L 16 99 12/05/19 22:30 56 L 25 H 98 12/05/19 22:20 55 L 20 97 12/05/19 22:10 57 L 19 97 12/05/19 22:00 58 L 20 97 12/05/19 21:50 60 18 97 12/05/19 21:40 58 L 15 97 Laboratory Results 12/06/19 12/06/19 12/06/19 Range/Units 06:18 06:18 06:18 WBC (4.8-10.8) K/uL RBC (4.7-6.1) M/uL Hgb (14.0-18.0) g/dL Hct (42-52) % MCV (80-100) fL MCH (25-34) pg MCHC (32-36) g/dL RDW Std Deviation (36.4-46.3) fL RDW Coeff of Tati (11.5-14.5) % Plt Count (130-400) K/uL MPV (7.4-10.4) fL Immature Gran % (Auto) % Neut % (Auto) % Lymph % (Auto) % Jefferson % (Auto) % Eos % (Auto) % Baso % (Auto) % Immature Gran # (Auto) (0.00-0.02) K/uL Neut # (Auto) (1.4-6.5) K/uL Lymph # (Auto) (1.2-3.4) K/uL Jefferson # (Auto) (0.11-0.59) K/uL Eos # (Auto) (0-0.5) K/uL Baso # (Auto) (0-0.2) K/uL PT (9.0-12.0) Seconds INR (0.9-1.1) APTT 82.0 H* (21.0-31.0) Seconds PTT Ratio 2.9 Sodium (136-145) mmol/L Potassium (3.5-5.1) mmol/L Chloride (98-107) mmol/L Carbon Dioxide (21-32) mmol/L Anion Gap (3-11) BUN (7-18) mg/dl Creatinine (0.6-1.4) mg/dl Est Cr Clr Drug Dosing ml/min Est GFR ( Amer) Est GFR (Non-Af Amer) BUN/Creatinine Ratio (10-20) Glucose (70-99) mg/dl Estimat Average Glucose mg/dl Hemoglobin A1c (4.5-5.6) % Calcium (8.5-10.1) mg/dl Phosphorus (2.5-4.9) mg/dl Magnesium (1.8-2.4) mg/dl Total Bilirubin (0.2-1) mg/dl AST (15-37) U/L ALT (12-78) U/L Alkaline Phosphatase (45-117) U/L Troponin I 0.442 H* (0-0.045) ng/ml Total Protein (6.4-8.2) gm/dl Albumin (3.4-5.0) gm/dl Globulin (2.5-4.0) gm/dl Albumin/Globulin Ratio (0.9-2) Triglycerides (0-150) mg/dl Cholesterol (0-200) mg/dl LDL Cholesterol, Calc mg/dl VLDL Cholesterol, Calc mg/dl HDL Cholesterol mg/dl Cholesterol/HDL Ratio Lipase (73-393) U/L Hepatitis C Ab Screen Neg (Neg) 12/06/19 12/06/19 12/06/19 Range/Units 06:18 06:18 06:18 WBC 5.56 (4.8-10.8) K/uL RBC 4.31 L (4.7-6.1) M/uL Hgb 12.9 L (14.0-18.0) g/dL Hct 39.0 L (42-52) % MCV 90.5 (80-100) fL MCH 29.9 (25-34) pg MCHC 33.1 (32-36) g/dL RDW Std Deviation 42.7 (36.4-46.3) fL RDW Coeff of Tati 12.9 (11.5-14.5) % Plt Count 159 (130-400) K/uL MPV 10.4 (7.4-10.4) fL Immature Gran % (Auto) 0.2 % Neut % (Auto) 60.7 % Lymph % (Auto) 28.8 % Jefferson % (Auto) 8.5 % Eos % (Auto) 1.4 % Baso % (Auto) 0.4 % Immature Gran # (Auto) 0.01 (0.00-0.02) K/uL Neut # (Auto) 3.38 (1.4-6.5) K/uL Lymph # (Auto) 1.60 (1.2-3.4) K/uL Jefferson # (Auto) 0.47 (0.11-0.59) K/uL Eos # (Auto) 0.08 (0-0.5) K/uL Baso # (Auto) 0.02 (0-0.2) K/uL PT (9.0-12.0) Seconds INR (0.9-1.1) APTT (21.0-31.0) Seconds PTT Ratio Sodium 142 (136-145) mmol/L Potassium 4.0 (3.5-5.1) mmol/L Chloride 111 H (98-107) mmol/L Carbon Dioxide 29 (21-32) mmol/L Anion Gap 2.0 L (3-11) BUN 15 (7-18) mg/dl Creatinine 0.88 (0.6-1.4) mg/dl Est Cr Clr Drug Dosing 92.7 ml/min Est GFR ( Amer) 106.7 Est GFR (Non-Af Amer) 92.1 BUN/Creatinine Ratio 17.3 (10-20) Glucose 91 (70-99) mg/dl Estimat Average Glucose 111 mg/dl Hemoglobin A1c 5.5 (4.5-5.6) % Calcium 8.2 L (8.5-10.1) mg/dl Phosphorus 2.7 (2.5-4.9) mg/dl Magnesium 2.2 (1.8-2.4) mg/dl Total Bilirubin 0.6 (0.2-1) mg/dl AST 17 (15-37) U/L ALT 25 (12-78) U/L Alkaline Phosphatase 39 L (45-117) U/L Troponin I (0-0.045) ng/ml Total Protein 6.4 (6.4-8.2) gm/dl Albumin 3.2 L (3.4-5.0) gm/dl Globulin 3.2 (2.5-4.0) gm/dl Albumin/Globulin Ratio 1.0 (0.9-2) Triglycerides 55 (0-150) mg/dl Cholesterol 142 (0-200) mg/dl LDL Cholesterol, Calc 76 mg/dl VLDL Cholesterol, Calc 11 mg/dl HDL Cholesterol 55 mg/dl Cholesterol/HDL Ratio 3 Lipase (73-393) U/L Hepatitis C Ab Screen (Neg) 12/06/19 12/06/19 12/05/19 Range/Units 01:02 01:02 21:32 WBC 5.87 (4.8-10.8) K/uL RBC 4.70 (4.7-6.1) M/uL Hgb 14.3 (14.0-18.0) g/dL Hct 42.6 (42-52) % MCV 90.6 (80-100) fL MCH 30.4 (25-34) pg MCHC 33.6 (32-36) g/dL RDW Std Deviation 43.1 (36.4-46.3) fL RDW Coeff of Tati 13.0 (11.5-14.5) % Plt Count 180 (130-400) K/uL MPV 10.8 H (7.4-10.4) fL Immature Gran % (Auto) 0.2 % Neut % (Auto) 59.3 % Lymph % (Auto) 32.0 % Jefferson % (Auto) 7.2 % Eos % (Auto) 1.0 % Baso % (Auto) 0.3 % Immature Gran # (Auto) 0.01 (0.00-0.02) K/uL Neut # (Auto) 3.48 (1.4-6.5) K/uL Lymph # (Auto) 1.88 (1.2-3.4) K/uL Jefferson # (Auto) 0.42 (0.11-0.59) K/uL Eos # (Auto) 0.06 (0-0.5) K/uL Baso # (Auto) 0.02 (0-0.2) K/uL PT (9.0-12.0) Seconds INR (0.9-1.1) APTT (21.0-31.0) Seconds PTT Ratio Sodium 142 140 (136-145) mmol/L Potassium 3.9 3.7 (3.5-5.1) mmol/L Chloride 110 H 110 H (98-107) mmol/L Carbon Dioxide 28 25 (21-32) mmol/L Anion Gap 4.0 5.0 (3-11) BUN 17 20 H (7-18) mg/dl Creatinine 0.83 0.98 (0.6-1.4) mg/dl Est Cr Clr Drug Dosing 98.3 83.2 ml/min Est GFR ( Amer) 109.3 95.4 Est GFR (Non-Af Amer) 94.3 82.3 BUN/Creatinine Ratio 20.6 H 20.6 H (10-20) Glucose 88 118 H (70-99) mg/dl Estimat Average Glucose mg/dl Hemoglobin A1c (4.5-5.6) % Calcium 8.6 9.0 (8.5-10.1) mg/dl Phosphorus (2.5-4.9) mg/dl Magnesium (1.8-2.4) mg/dl Total Bilirubin 0.2 0.3 (0.2-1) mg/dl AST 21 19 (15-37) U/L ALT 27 29 (12-78) U/L Alkaline Phosphatase 46 53 (45-117) U/L Troponin I 0.201 H* 0.105 H* (0-0.045) ng/ml Total Protein 6.9 7.6 (6.4-8.2) gm/dl Albumin 3.6 3.9 (3.4-5.0) gm/dl Globulin 3.3 3.7 (2.5-4.0) gm/dl Albumin/Globulin Ratio 1.1 1.1 (0.9-2) Triglycerides (0-150) mg/dl Cholesterol (0-200) mg/dl LDL Cholesterol, Calc mg/dl VLDL Cholesterol, Calc mg/dl HDL Cholesterol mg/dl Cholesterol/HDL Ratio Lipase 131 (73-393) U/L Hepatitis C Ab Screen (Neg) 12/05/19 12/05/19 Range/Units 21:32 21:32 WBC 6.50 (4.8-10.8) K/uL RBC 4.87 (4.7-6.1) M/uL Hgb 14.9 (14.0-18.0) g/dL Hct 44.0 (42-52) % MCV 90.3 (80-100) fL MCH 30.6 (25-34) pg MCHC 33.9 (32-36) g/dL RDW Std Deviation 42.5 (36.4-46.3) fL RDW Coeff of Tati 13.0 (11.5-14.5) % Plt Count 181 (130-400) K/uL MPV 10.7 H (7.4-10.4) fL Immature Gran % (Auto) 0.2 % Neut % (Auto) 60.2 % Lymph % (Auto) 29.4 % Jefferson % (Auto) 8.8 % Eos % (Auto) 1.2 % Baso % (Auto) 0.2 % Immature Gran # (Auto) 0.01 (0.00-0.02) K/uL Neut # (Auto) 3.92 (1.4-6.5) K/uL Lymph # (Auto) 1.91 (1.2-3.4) K/uL Jefferson # (Auto) 0.57 (0.11-0.59) K/uL Eos # (Auto) 0.08 (0-0.5) K/uL Baso # (Auto) 0.01 (0-0.2) K/uL PT 10.7 (9.0-12.0) Seconds INR 1.0 (0.9-1.1) APTT 29.2 (21.0-31.0) Seconds PTT Ratio 1.0 Sodium (136-145) mmol/L Potassium (3.5-5.1) mmol/L Chloride (98-107) mmol/L Carbon Dioxide (21-32) mmol/L Anion Gap (3-11) BUN (7-18) mg/dl Creatinine (0.6-1.4) mg/dl Est Cr Clr Drug Dosing ml/min Est GFR ( Amer) Est GFR (Non-Af Amer) BUN/Creatinine Ratio (10-20) Glucose (70-99) mg/dl Estimat Average Glucose mg/dl Hemoglobin A1c (4.5-5.6) % Calcium (8.5-10.1) mg/dl Phosphorus (2.5-4.9) mg/dl Magnesium (1.8-2.4) mg/dl Total Bilirubin (0.2-1) mg/dl AST (15-37) U/L ALT (12-78) U/L Alkaline Phosphatase (45-117) U/L Troponin I (0-0.045) ng/ml Total Protein (6.4-8.2) gm/dl Albumin (3.4-5.0) gm/dl Globulin (2.5-4.0) gm/dl Albumin/Globulin Ratio (0.9-2) Triglycerides (0-150) mg/dl Cholesterol (0-200) mg/dl LDL Cholesterol, Calc mg/dl VLDL Cholesterol, Calc mg/dl HDL Cholesterol mg/dl Cholesterol/HDL Ratio Lipase (73-393) U/L Hepatitis C Ab Screen (Neg) Medications Administered Current Inpatient Medications Aspirin (Ecotrin Ectab) 81 mg PO [facility] Stop: 01/05/20 08:59 Last Admin: 12/06/19 08:28 Dose: 81 mg Documented by: Atorvastatin Calcium (Lipitor) 40 mg PO [facility] Stop: 01/05/20 08:59 Last Admin: 12/06/19 09:42 Dose: 40 mg Documented by: Heparin Sodium/Dextrose (Heparin Sodium/Dextrose) 25,000 units in 500 mls @ 25 mls/hr IV .Q20H GILA; Protocol Stop: 01/04/20 23:54 Last Titration: 12/06/19 08:28 Dose: 1,250 units/hr, 25 mls/hr Documented by: Potassium Chloride/Sodium Chloride (Normal Saline W/20 Meq Kcl) 20 meq in 1,000 mls @ 100 mls/hr IV .Q10H GILA Stop: 01/05/20 00:03 Last Admin: 12/06/19 08:28 Dose: 100 mls/hr Documented by: Pantoprazole Sodium (Protonix) 40 mg PO QAM [facility] Stop: 12/10/19 08:59 Last Admin: 12/06/19 09:42 Dose: 40 mg Documented by: PG Care Time/CCT Total # of Minutes Spent Total Time Spent with Patient: Total time spent is greater than 50% in coordination of care (as documented) at patient's floor/unit and/or counseling patient: Coding Level of Care Code 37724 Inpt Consult Level 5 Diagnoses Acute coronary syndrome I24.9 Resident Activity Tracking Resident Involvement: Resident Care Provided Care Provided: Adult Hospital Medicine (Cardiology)
[2019-12-06] MEDS ORDERED: PANTOprazole 40 MG in SYRINGE 0 ML IV SCH (11:00)
[2019-12-06] MEDS ORDERED: fentaNYL citrate 100 MCG/2 ML VIAL ONE ×2 (12:00→15:16)
[2019-12-06] MEDS ORDERED: HEPARIN (PORCINE) 1000 UNIT/ML 10 ML (CATH LAB USE ONLY) ONE (12:00)
[2019-12-06] MEDS ORDERED: NiCARDipine HCL INJ 2.5 MG/ML 10 ML AMP ONE (12:00)
[2019-12-06] MEDS ORDERED: NITROGLYCERIN/D5W 100MCG/ML 20ML SYR ONE (12:01)
[2019-12-06] MEDS ORDERED: MIDAZOLAM HCL 1 MG/ML 2ML VIAL ONE ×2 (12:01→15:16)
--- NOTE | 2019-12-06 12:04 | Pre Anesthesia Assessment ---
Date of Service December 06, 2019 Pre Sedation Assessment Vital Signs Temp Pulse Pulse Resp BP BP BP 12/06/19 11:56 63 16 131/74 12/06/19 11:44 98.6 F 55 L 17 119/70 12/06/19 07:38 97.9 F 52 L 17 108/48 L 12/06/19 03:49 97.5 F L 50 L 18 111/61 12/06/19 00:52 97.3 F L 56 L 146/87 H 12/06/19 00:50 56 L 12/06/19 00:20 56 L 16 160/95 H 12/06/19 00:10 57 L 17 12/06/19 00:00 54 L 18 12/05/19 23:50 56 L 16 12/05/19 23:40 57 L 17 12/05/19 23:32 63 18 12/05/19 23:31 59 L 17 168/97 H 12/05/19 23:30 63 16 12/05/19 23:20 58 L 17 12/05/19 23:10 62 18 12/05/19 23:00 62 20 12/05/19 22:50 58 L 25 H 12/05/19 22:40 58 L 16 12/05/19 22:30 56 L 25 H 12/05/19 22:20 55 L 20 12/05/19 22:10 57 L 19 12/05/19 22:00 58 L 20 12/05/19 21:50 60 18 12/05/19 21:40 58 L 15 12/05/19 21:30 62 16 12/05/19 21:20 64 17 12/05/19 21:10 60 17 12/05/19 21:00 64 19 12/05/19 20:50 63 14 12/05/19 20:49 63 19 12/05/19 20:36 98.1 F 68 20 155/78 H Pulse Ox 12/06/19 11:56 97 12/06/19 11:44 97 12/06/19 07:38 95 12/06/19 03:49 97 12/06/19 00:52 98 12/06/19 00:50 12/06/19 00:20 12/06/19 00:10 12/06/19 00:00 12/05/19 23:50 12/05/19 23:40 12/05/19 23:32 97 12/05/19 23:31 12/05/19 23:30 12/05/19 23:20 12/05/19 23:10 12/05/19 23:00 12/05/19 22:50 97 12/05/19 22:40 99 12/05/19 22:30 98 12/05/19 22:20 97 12/05/19 22:10 97 12/05/19 22:00 97 12/05/19 21:50 97 12/05/19 21:40 97 12/05/19 21:30 98 12/05/19 21:20 98 12/05/19 21:10 98 12/05/19 21:00 97 12/05/19 20:50 98 12/05/19 20:49 97 12/05/19 20:36 96 Cardiovascular RRR, no murmur, no edema Respiratory normal respiratory effort, lungs clear to auscultation Pre-Sedation Airway Assessment Smoking Status: Never smoker Hx Sleep Apnea: No Hx Difficult Intubation: No Short, Thick Neck: No Thyromental Distance: > or= 3.5 Finger Breadths Oral Cavity: + Capped Teeth Mallampati Class: II ASA: ASA3 NPO Status Date of Last Intake of Fluids: 12/05/19 Time of Last Intake of Fluids: 18:00 Date of Last Intake of Solid Food: 12/05/19 Time of Last Intake of Solid Foods: 18:00 Procedure Planning Contraindications for Sedation: none Current Medications Reviewed: Yes Notes The planned sedation has been discussed with the patient. Informed Consent was obtained. I have identified the patient, determined the appropriateness of sedation and have assessed the patient immediately prior to the procedure. All medicine(s) and interventions are by my order.
--- NOTE | 2019-12-06 12:26 | Family Medicine Progress Note ---
Date of Service December 06, 2019 Assessment & Plan (1) Acute coronary syndrome: 63 yo M PMHx HTN, GERD, prostate cancer s/p radiation admitted for NSTEMI; with improvement in chest pain and for catheterization this afternoon. Acute Coronary Syndrome: - History of exertional chest tightness and pressure is consistent with cardiac etiology, troponins this admission 0.105 -> 0.442. - EKG overnight no ST elevations/depressions, demonstrating sinus bradycardia. - Patient is currently asymptomatic, will have catheterization this afternoon. - ACS therefore should optimize with beta raegan, ROXANNE/ARB, plaque-stabilizing statin dosing, and potentially DAPT. - Will start metoprolol 12.5mg daily, lisinopril 5mg daily (d/c amlodipine), atorvastatin 40mg daily. Continue aspirin 81mg. - Will require sublingual nitrate PRN angina on discharge. - Heparin gtt to be transitioned to Plavix if needs stenting. - Continue to monitor on telemetry. - Education provided on exercise regimen moving forward, as well as dietary modifications. GERD: - continue home pantoprazole. HTN: - d/c amlodipine. - start lisinopril 5mg daily. Titrate up if necessary for BP control. Code Status: FULL CODE FEN/GI: NPO at this time pending catheterization; Heart Healthy diet following DVT ppx: Currently on Heparin gtt Dispo: Continue Telemetry (2) GERD (gastroesophageal reflux disease): (3) Essential (primary) hypertension: Admission and Anticipated Discharge Date Admission Date: December 05, 2019 Subjective Patient without acute events overnight. No chest pain since arrival at ED. Troponin overnight further elevated to 0.442. No SOB, dizziness, headache. Review of Systems Constitutional: no fever, no chills and no malaise Respiratory: no cough and no dyspnea Cardiovascular: no chest pain, no palpitations and no edema Gastrointestinal: no abdominal pain, no constipation and no diarrhea/loose stools Physical Exam Constitutional: WD/WN, vitals as above Respiratory: normal respiratory effort, lungs clear to auscultation Cardiovascular: RRR, no murmur, no edema Gastrointestinal (Abdomen): normal bowel sounds, soft, nontender, no hepatosplenomegaly Skin: no rashes, warm and dry Psychiatric: A+Ox3, euthymic affect Results & Data ([facility]) Vital Signs (Past 12 Hours) Vital Signs Temp Pulse Pulse Resp BP BP Pulse Ox 05/29/20 11:56 63 16 131/74 97 12/06/19 11:44 37.0 C 55 L 17 119/70 97 12/06/19 07:38 36.6 C 52 L 17 108/48 L 95 12/06/19 03:49 36.4 C L 50 L 18 111/61 97 12/06/19 00:52 36.3 C L 56 L 146/87 H 98 12/06/19 00:50 56 L Resident Activity Tracking Resident Involvement: Resident Care Provided Care Provided: Adult Hospital Medicine
--- NOTE | 2019-12-06 16:06 | Post Anesthesia Assessment ---
Date of Service December 06, 2019 Post Sedation Assessment Vital Signs Temp Pulse Pulse Resp BP BP BP 12/06/19 14:00 58 L 16 114/66 12/06/19 13:24 60 16 112/62 12/06/19 12:54 57 L 16 108/62 12/06/19 11:56 63 16 131/74 12/06/19 11:44 98.6 F 55 L 17 119/70 12/06/19 07:38 97.9 F 52 L 17 108/48 L 12/06/19 03:49 97.5 F L 50 L 18 111/61 12/06/19 00:52 97.3 F L 56 L 146/87 H 12/06/19 00:50 56 L 12/06/19 00:20 56 L 16 160/95 H 12/06/19 00:10 57 L 17 12/06/19 00:00 54 L 18 12/05/19 23:50 56 L 16 12/05/19 23:40 57 L 17 12/05/19 23:32 63 18 12/05/19 23:31 59 L 17 168/97 H 12/05/19 23:30 63 16 12/05/19 23:20 58 L 17 12/05/19 23:10 62 18 12/05/19 23:00 62 20 12/05/19 22:50 58 L 25 H 12/05/19 22:40 58 L 16 12/05/19 22:30 56 L 25 H 12/05/19 22:20 55 L 20 12/05/19 22:10 57 L 19 12/05/19 22:00 58 L 20 12/05/19 21:50 60 18 12/05/19 21:40 58 L 15 12/05/19 21:30 62 16 12/05/19 21:20 64 17 12/05/19 21:10 60 17 12/05/19 21:00 64 19 12/05/19 20:50 63 14 12/05/19 20:49 63 19 12/05/19 20:36 98.1 F 68 20 155/78 H Pulse Ox 12/06/19 14:00 97 12/06/19 13:24 97 12/06/19 12:54 97 12/06/19 11:56 97 12/06/19 11:44 97 12/06/19 07:38 95 12/06/19 03:49 97 12/06/19 00:52 98 12/06/19 00:50 12/06/19 00:20 12/06/19 00:10 12/06/19 00:00 12/05/19 23:50 12/05/19 23:40 12/05/19 23:32 97 12/05/19 23:31 12/05/19 23:30 12/05/19 23:20 12/05/19 23:10 12/05/19 23:00 12/05/19 22:50 97 12/05/19 22:40 99 12/05/19 22:30 98 12/05/19 22:20 97 12/05/19 22:10 97 12/05/19 22:00 97 12/05/19 21:50 97 12/05/19 21:40 97 12/05/19 21:30 98 12/05/19 21:20 98 12/05/19 21:10 98 12/05/19 21:00 97 12/05/19 20:50 98 12/05/19 20:49 97 12/05/19 20:36 96 Recovery Score Activity: Moves 4 extremities Respiration: Deep Breath/Cough Circulation: +/-20% PreAnes Value Consciousness: Fully Awake Oxygen Saturation: O2 needed for >90% Discharge Sedation Level of Care: Fast Track Phase II Post Sedation Plan On clinical assessment, the patient appears to have tolerated the sedation without complications. Patient is recovering as anticipated. Patient will continue to be monitored by nursing and may be discharged when sedation discharge criteria are met per below protocol. Upon Completions of procedure up to 15 minutes continue every 5 minute vital signs and the P.A.R. score; then discharge to a Phase I or Fast Track to Phase II per the following guidelines: * Discharge Patient to appropriate Phase II area if PAR is 8 or greater or return to pre- procedure baseline. The post - procedure orders will be as directed. * If PAR score is less than 8 or not return to pre-procedure baseline then patient will follow Phase I monitoring till PAR is reached for Phase II. The Phase I may be done in procedure room or may call to secure a Phase I area. * If naloxone or flumazenil are used for reversal, hold in Phase I for continued monitoring from when last reversal dose was given for a minimum of 60 minutes or longer pending the nurse and/or physician discretion of patient condition before discharge to Phase II. Please call the Sedation Physician to re-evaluate and complete post-note for discharge to Phase II area. Do NOT discharge from procedure sedation or Phase 1 until post- sedation evaluation note is complete by procedure /sedation MD Sedation Discharge Instructions to be given to the patient at discharge to home.
--- NOTE | 2019-12-06 16:10 | Cardiac Catheterization ---
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 Cardiac Status Clinical evaluation leading to the procedure CAD Presenation: Non STEMI Anginal Classification: CCS IV Heart Failure: No Cardiogenic Shock within 24 Hours: No Cardiac Arrest within 24 Hours: No Imaging Studies Past 6 Months: No Stress Studies Past 6 Months: No Diagnostic Physicians Name: Eliot Currie MD Status: Elective Closure Device Percutaneous Entry Location: Radial Closure Device: Radial Band Recommendations: CABG Intraprocedure Events Significant Disection: No Perforation: No Cardiac Cath Procedure Full Procedure Date December 06, 2019 Pre-Procedure Diagnosis Pre-Procedure Diagnosis: Non STEMI AUC Score AUC Score: 8 Post-Procedure Diagnosis Post-Procedure Diagnosis: Severe CAD and Successful PCI Procedure(s) Performed Procedure(s) Performed: Coronary Angiography, Left Heart Cath and LV Angiography Gem Setter Eliot Currie MD Customer Support Associate(s) Noreen Estimated Blood Loss Estimated Blood Loss: 10 Medication(s) Medication(s): Fentanyl, Heparin, Lidocaine 1%, Nicardipine, Nitroglycerin and Versed Summary of Findings Indication: NSTEMI Access: 6 Fr right radial artery Catheters: [place], JL 3.5 pigtail Findings: LM -long, medium caliber, 20% ostial, 40% distal extending into LAD, circumflex LAD -70% ostial, 90% mid at takeoff of small second diagonal, distal vessel tortuous as wraps around apex Circumflex -hazy/thrombotic 99% ostial stenosis extending to bifurcation with mid segment and large OM1. Small distal vessel with 90% stenosis. Bifurcating OM1 with 70% disease in both superior and inferior branches. RCA -large caliber, dominant, 80 to 90% mid stenosis, distal luminal irregularities LVEDP -10 LVEF 55% Arterial Closure: TR band Summary: 1. Severe three-vessel coronary artery disease -99% acute ostial circumflex lesion extending into distal left main and ostial LAD 70% ostial LAD, 90% mid LAD 80 to 90% mid RCA 2. Normal LV function, EF 55%, normal intracardiac filling pressure. Recommendations: Recommend evaluation for CABG. Discussed with Dr. Baires of [facility] cardiac surgery who has agreed to accept patient on transfer. Hemodynamics Rest Ao:: 136/67/97 Final Ao: 127/68/93 LV: 132/10 Recommendations Recommendations: CABG Specimens Specimens: None Radiation Exposure (mGy) 692 Contrast (mls) 80 Fluids (cc crystalloids) Fluids (cc crystalloids): 100 Drains Drains: none Anesthesia Moderate Procedural Complication(s) None Disposition PCU I attest to the content of the Intraoperative Record and any orders documented therein. Any exceptions are noted below. [facility] Card Cath Procedure Codes Cardiac Catheterization Procedure 1: Cardiovascular Cath Procedures: 49258 Coronaries and LHC (+/-LV) Moderate Sedation Procedure 1: Sedation/Anesthesia: 54235 Mod Sedation by the same physician;Init15 Min Child Age 5 & Up Procedure 2: Sedation/Anesthesia: 65170 Mod Sedation by the same physician; Ea Albu[place]umha31 Minutes PG Care Time/CCT Total # of Minutes Spent Total Time Spent with Patient: Total time spent is greater than 50% in coordination of care (as documented) at patient's floor/unit and/or counseling patient:
[2019-12-06] MEDS ORDERED: NITROGLYCERIN SL 0.4 MG/TAB TAB ONE ×2 (16:45→19:02)
[2019-12-06] MEDS ORDERED: NITROGLYCERIN SL 0.4 MG/TAB TAB SL STA (16:51)
--- NOTE | 2019-12-06 16:52 | Electrocardiogram Report ---
Test Reason : Blood Pressure : / mmHG Vent. Rate : 068 BPM Atrial Rate : 068 BPM P-R Int : 140 ms QRS Dur : 092 ms QT Int : 402 ms P-R-T Axes : 054 -06 055 degrees QTc Int : 427 ms Normal sinus rhythm Normal ECG When compared with ECG of 14-FEB-2018 21:00, No significant change was found Confirmed by Randy Corea ([id number]) on 12/06/2019 4:52:24 PM Referred By: REFERRED SELF Confirmed By:Randy Corea
--- NOTE | 2019-12-06 16:59 | Electrocardiogram Report ---
Test Reason : Blood Pressure : / mmHG Vent. Rate : 055 BPM Atrial Rate : 055 BPM P-R Int : 152 ms QRS Dur : 086 ms QT Int : 432 ms P-R-T Axes : 055 015 043 degrees QTc Int : 413 ms Sinus bradycardia Otherwise normal ECG When compared with ECG of 05-DEC-2019 20:44, (unconfirmed) No significant change was found Confirmed by Randy Corea ([id number]) on 12/06/2019 4:58:30 PM Referred By: REFERRED SELF Confirmed By:Randy Corea
--- NOTE | 2019-12-06 17:07 | Discharge Summary ---
Date of Service December 06, 2019 Admission HPI Per Admitting Provider Patient is a 63 year old male with PMHx hypertension, GERD, and prostate Cx s/p radiation who presents with 2 day history of chest pain. Patient states that he first noted the chest pain on Monday while he was mowing his grass. He described it initially as a tightness/discomfort located in the mid-sternum. He notes the pain lasted 1 hour while he finished mowing the grass and then another 30 minutes afterwards while resting. He denies any SOB, diaphoresis, or dizziness. He notes that since then, he has also had 5-6 instances where he had similar pain, though several of these would be unprovoked where he would just be sitting at his desk. He notes again that the pain is a mid-sternum tightness that lasts 20-30 minutes. This evening he states that he was moving bags of trash (15lb each) when he started to notice the pain again. While returning up from steps he states that the pain elevated to an 8/10 and that he had to stop and sit down. He still denied any SOB or diaphoresis. He does note that at this time though the pain felt as though it radiated into his mid back. He states that during these incidents, belching appeared to help dissipate some of the pain. He notes that he may have had a similar experience while really exerting himself in the past year, but is unsure if it was the same type of pain. He notes that he has a family history of heart attacks with 3-4 of his great uncles passing away from heart attacks between 40-50 years old. He states his grandfather had a stroke at 60 and his father a stroke but unsure of age. Patient smoked what he recalls 10 packs total in his lifetime (between ages 19- 20), has a glass of wine every 3 months, and does not use elicit drugs. Currently patient denies any chest pain, pressure, SOB, diaphoresis, dizziness, abdominal pain, nausea, vomiting, hematochezia, melena, dysuria. Principal Diagnosis CAD requiring CABG Discharge Exam gen aao pleasant nad heent nc at mmm breathing unlabored no accessory muscles good effort skin no rashes no pallor or icterus neuro no focal deficits Discharge Data Allergies Allergy/AdvReac Type Severity Reaction Status Date / Time No Known Drug Allergies Allergy Verified 12/05/19 21:39 Consultations 12/05/19 22:23 ED Decision to Admit Stat 12/06/19 00:50 Consult Cardiology Routine 12/06/19 16:37 Burn CD for patient Stat Procedures Performed Operation Date: 12/06/19 14:00 Actual Procedures p Cath, Left with Cors and Vent - Scotty Currie MD s Cineradiography w/Routine Exam - Scotty Currie MD Ordered Studies 12/06/19 10:53 CL Cath Imgs for PACS use only Routine Hospital Course (1) Acute coronary syndrome: admitted due to NSTEMI / unstable angina --> med management / taken to cath --> found to have severe disease requiring CABG. for transfer to tertiary for this -continue heparin and prn nitrates en route -initiated on atorvastatin, lisinopril, metoprolol, asa as well ---further management by receiving team (2) GERD (gastroesophageal reflux disease): (3) Essential (primary) hypertension: Total Time Total Time Spent Total Time Spent (In Minutes): 30 Discharge Plan Discharge Items Patient Disposition: Home - Self-Care Reason For Visit: EXERTIONAL CHEST PAIN Discharge Diagnosis: NSTEMI Condition on Discharge: Good Activity: Per Instructions section Non-emergency contact: Primary Care Provider Call non-emergency contact if: your symptoms worsen Follow-up/Referrals: Luan Zapata MD [Primary Care Provider] - 12/10/19 12:45 pm (Please, follow up at Dr. Luan Zapata's office with his associate, Luann Dorsey PA-C, on MondayDecember 09 at 12:45 pm. *If you need to change this appointment, call their office at [phone].) Scotty Currie MD [Physician] - 12/24/19 10:00 am (Please, follow up at [facility] Office with Dr. Evan Currie on MondayDecember 23 at 10:00 am. *The office is located in [address] [facility], next to this [facility]. If you have any questions or need to change the appointment, call the office at [phone].) Diet: Heart Healthy Add Attending Provider Instructions: per [facility] Pending Studies at Discharge: No Stand-Alone Forms: My [facility], Smoking Cessation Medications and DC Order Prescriptions: New atorvastatin 40 mg Tablet 40 mg PO QAM Qty: 30 RF: 0 lisinopril [Zestril] 5 mg Tablet 5 mg PO QAM Qty: 30 RF: 0 aspirin 81 mg Tablet,Delayed Release (Dr/Ec) 81 mg PO QAM Qty: 30 RF: 0 metoprolol tartrate 25 mg Tablet 12.5 mg PO QAM Qty: 30 RF: 0 Continued cholecalciferol (vitamin D3) 25 mcg (1,000 unit) capsule 25 mcg PO QAM RF: 0 Discontinued ginkgo biloba 40 mg tablet 40 mg PO QAM RF: 0 ascorbic acid (vitamin C) 500 mg tablet 500 mg PO QAM RF: 0 garlic 1,000 mg Capsule 1,000 mg PO QAM RF: 0 zinc 50 mg Tablet 50 mg PO QAM RF: 0 amlodipine 5 mg tablet 5 mg PO QAM RF: 0 calcium citrate 250 mg calcium tablet 250 mg PO QAM RF: 0 Discharge Orders: Discharge Order (Routine); Ordered 12/06/19 Ordered By: David Gore Admission Data Admit Date/Time: 12/05/19 23:44 Attending Provider: David Gore Admit Provider: Bobby Pham Primary Care Provider: Luan Zapata Other Providers: Bobby Pham ; Scotty Bloom Coding Level of Care Code 44126 OBS Care - Discharge Diagnoses Acute coronary syndrome I24.9 GERD (gastroesophageal reflux disease) K21.9 Essential (primary) hypertension I10
[2019-12-06 17:21] LABS: Partial Thromboplastin Ratio 3.6
[2019-12-06 17:26] LABS: Partial Thromboplastin Time 99.9 Seconds (21.0-31.0)
[2019-12-06 18:57] VITALS: TEMP 97.7
[2019-12-06] MEDS ORDERED: MoRPHine SULFATE 4 MG/ML 1 ML CARP\\VIAL IV PRN (19:15)
[2019-12-06] MEDS ORDERED: NITROGLYCERIN 2% OINTMENT 30GM TUBE EXT PRN (19:16)
[2019-12-06 20:48] VITALS: O2SAT 96
[2019-12-06 20:51] VITALS: PULSE 61
[2019-12-06] MEDS ORDERED: SIMVASTATIN 20 MG TAB PO SCH (21:00)
[2019-12-06 21:21] VITALS: BP 119/70
--- NOTE | 2019-12-07 05:45 | Billing Data ---
Date of Service December 07, 2019 Coding Level of Care Code 41835 Initial Inpt Care Lvl 3
[2019-12-07] MEDS ORDERED: lisinopriL 5 MG TAB PO SCH (09:00)
[2019-12-07] MEDS ORDERED: METOPROLOL TARTRATE 25 MG TAB PO SCH (09:00)
--- NOTE | 2019-12-08 07:21 | Electrocardiogram Report ---
Test Reason : Blood Pressure : / mmHG Vent. Rate : 058 BPM Atrial Rate : 058 BPM P-R Int : 144 ms QRS Dur : 094 ms QT Int : 438 ms P-R-T Axes : 049 006 047 degrees QTc Int : 429 ms Sinus bradycardia Otherwise normal ECG When compared with ECG of 06-DEC-2019 08:58, No significant change was found Confirmed by Bandar Roblero ([id number]) on 12/08/2019 7:21:28 AM Referred By: REFERRED SELF Confirmed By:Bandar Roblero
== END 2019-12-06 21:30 | disposition short-term general hospital (02) ==
LOC: ED 20:34 → 2S 20:34 → SUATTDRO 23:44 → 2S 12-06 00:22

== ENCOUNTER 2024-08-18 18:37 | Observation (INO) ==
[2024-08-18 19:19] LABS: Basophils # (auto) 0.05 K/uL (0.00-0.20); Basophils % (auto) 0.4 %; Eosinophils # (auto) 0.08 K/uL (0.00-0.50); Eosinophils % (auto) 0.7 %; Hematocrit (blood only) 49.3 % (42.0-52.0); Hemoglobin 16.9 g/dl (14.0-18.0); Immature Granulocytes # (auto) 0.04 K/uL (0.01-0.20); Immature Granulocytes % (auto) 0.3 %; Lymphocytes # (auto) 2.24 K/uL (1.20-3.40); Lymphocytes % (auto) 19.1 %; Mean Corpuscular Hemoglobin 30.5 pg (25.0-34.0); Mean Corpuscular Hgb Conc 34.3 g/dL (32.0-36.0); Mean Platelet Volume 10.5 fL (9.4-12.4); Neutrophils # (auto) 8.61 K/uL (1.40-6.50); Neutrophils % (auto) 73.5 %; Platelet Count 218 K/uL (130-400); RDW Coefficient of Variation 12.2 % (11.5-14.5); RDW Standard Deviation 39.9 fL (36.4-46.3); Red Blood Count 5.54 M/uL (4.70-6.10); White Blood Count 11.72 K/ul (4.8-10.8)
[2024-08-18 19:32] LABS: Albumin Globulin Ratio 1.5 (0.9-2); Albumin Level 4.8 gm/dl (3.4-5.0); BUN Creatinine Ratio 24.6 (10-20); Bilirubin,Total 0.8 mg/dl (0.2-1.0); Calcium 10.1 mg/dl (8.6-10.3); Creatinine Clr Calc Pharmacy 64.9 ml/min; Globulin 3.3 gm/dl (2.5-4.0); Magnesium 2.3 mg/dl (1.7-2.4); Potassium 4.5 mmol/L (3.5-5.1); Total Protein 8.1 gm/dl (6.0-8.3)
--- NOTE | 2024-08-18 19:36 | XRay Report ---
INDICATION: Chest pain. TECHNIQUE: Frontal radiograph of the chest. COMPARISON: Radiograph from 02/24/2024. FINDINGS: The cardiomediastinal silhouette and pulmonary vasculature appear within normal limits. Elevation of the right hemidiaphragm. Subsegmental atelectasis in the lung bases. No infiltrate, pleural effusion or pneumothorax. No acute osseous abnormality evident. IMPRESSION: No acute cardiopulmonary process. Electronically signed by Bal Mello 08-18-2024 7:35 PM
[2024-08-18 19:39] LABS: Troponin I High Sensitivity 29.6 pg/ml (0-20)
[2024-08-18 19:40] LABS: Prothrombin Time 11.2 Seconds (9.0-12.0)
[2024-08-18 19:44] LABS: Appearance Urine Clear (Clear); Bilirubin Urine Negative (Negative); Blood Urine Negative (Negative); Color Urine Yellow; Glucose Urine UA Negative (Negative); Ketones Urine 1+ (Negative); Leukocyte Esterase Urine Negative (Negative); Nitrite Urine Negative (Negative); Protein Urine Negative (Negative); Specific Gravity Urine 1.028 (1.000-1.030); Urobilinogen Urine Negative (Negative); pH Urine 6.5 (4.5-7.5)
--- NOTE | 2024-08-18 20:00 | Emergency Department Note ---
Impression & Plan Chest pain, Heart palpitations, Non-ST elevation NC (NSTEMI) ED Provider Note HISTORY OF PRESENT ILLNESS: Patient is a 68-year-old male presenting with chest pain and erratic heart rate. Patient reports his normal baseline resting heart rate is in the low 50s to 60s. He states that he shoveled 3 [address] this evening and started feeling like his heart was "acting abnormal" and he had some chest pressure. He states his heart rate was up into the 98 to 104 bpm region, which she states is very fast for him. He states that the chest pressure and fatigue are now currently gone on presentation to the ER. He reports he supposed to have a stress test and echocardiogram performed later this week. However, given his fatigue and chest pressure symptoms, he decided to come be evaluated. He denies any significant shortness of breath, nausea or vomiting with the symptoms. He does have a history of CABG. ROS: as above PHYSICAL EXAM: Constitutional: Patient appears in no acute distress. HENT: Head: Normocephalic and atraumatic. Eyes: EOMI, PERRL Mouth/Throat: Mucous membranes moist. Neck: Trachea midline. Neck supple. Cardiovascular: RRR, No murmurs, rubs or gallops. Intact distal pulses. Pulmonary/Chest: No respiratory distress. Breath sounds clear and equal bilaterally. No wheezes or rales. Abdominal: Abdomen soft, no tenderness, rebound or guarding. Musculoskeletal: No edema, tenderness or deformity noted. Skin: Warm and dry. No rash, erythema, pallor or cyanosis Psychiatric: Appropriate mood and affect for situation. Neurological: Alert and keenly responsive. CN II-XII grossly intact, moving all extremities equally and fully. MDM: - Vitals signs stable - History obtained via patient. History as above. - Chronic conditions affecting care: prostate cancer; CAD (s/p CABG); HLD; HTN - Differential diagnoses include, but are not limited to: Acute coronary syndrome; pulmonary embolism; dissection; tension pneumothorax; esophageal rupture; pneumonia - Order placed for continuous cardiac monitoring. At this time, monitor showed rate of 75 bpm with normal sinus rhythm, per my interpretation. - External medical records reviewed. Primary care visit note dated 07/17/2023 was reviewed. Patient follows in their clinic for his regular appointment. He has a history of a four-vessel CABG. He follows with [facility] cardiology Dr. Currie - EKG interpreted by myself showed normal sinus rhythm. Rate 77 bpm. QT 364. No acute ischemic changes. - Laboratory workup interpreted by myself showed slight leukocytosis (WBC 11.72); normal electrolytes; elevated troponin (29.6); normal lipase; normal BNP - CXR negative for pneumonia, per my interpretation - COVID/flu/RSV negative - Repeat troponin has risen to 47.8 - Moderate HEART score. - Given patient's essential failed stress test, given his chest pain and symptoms after shoveling driveways, and rising troponin levels, will admit to hospital service for further evaluation and management and cardiology consultation. - Discussion was had with shoe parts caser about patient's case and need for admission - Hospitalist consulted for admission - Patient admitted to [facility] hospitalist service for further evaluation and management. ASSESSMENT AND PLAN: Diagnosis: chest pain; heart palpitations; NSTEMI Plan: admit Past Med/Surg History Problem List (Updated 08/18/24 @ 21:49 by Sabina Hare MD) Non-ST elevation NC (NSTEMI) (Acute) Heart palpitations (Acute) Chest pain (Acute) Scrotal cyst Dyslipidemia Palpitations Hx of CABG Hx of lithotripsy Hx of prostatectomy Encounter for preventative adult health care examination CAD (coronary artery disease) Kidney stone (Chronic) GERD (gastroesophageal reflux disease) (Chronic) 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) Essential (primary) hypertension (Chronic) Impotence, organic (Chronic) Nocturia (Chronic) Personal history of irradiation (Chronic) Radiation proctitis (Chronic) Urinary incontinence (Chronic) Prostate cancer (Chronic 04/28/16) Ureteral calculus (Chronic) Medical History (Updated 08/18/24 @ 21:49 by Sabina Hare MD) Acute cholecystitis Acute coronary syndrome NSTEMI, initial episode of care Internal hemorrhoids Other hemorrhoids Surgical History Hx laparoscopic cholecystectomy (10/25/23) Laparoscopic Cholecystectomy(Not Applicable) - Samuel Vital, DO Family History Father Diabetes Hypertension Prostate cancer Mother Cardiac disorder Kidney stones Breast cancer Uncle Myocardial infarction Denies family history of Ovarian cancer Colorectal cancer Social History (Updated 01/25/24 @ 13:37 by Tanja Rose LPN) Smoking Status: Never smoker Second Hand Exposure: No; Do You Dip or Chew Tobacco: No; Hx Alcohol Use: No Hx Substance Use: No Preferred Language: Tamazight Communication Ability: Effective Visual Impairment: Limited Hearing Ability: Normal Holistic Pulser Required: No Beliefs That Will Affect Care: None marital status: Current Living Situation: Spouse current occupational status: employed current occupation: [employer] How many Children do You have: 2 Feels Safe at Home: Yes Childhood Exposure to Second-Hand Smoke: No Diet: regular caffeine: No Dental Care, Regularly: Yes Physical Activity Frequency: 3-4 Times per Week Seatbelt Use: always Sunscreen Use: Yes Assistive Devices: Glasses Allergies Allergies Allergy/AdvReac Type Severity Reaction Status Date / Time No Known Drug Allergies Allergy Verified 08/01/24 11:24 Home Meds Home Medications Medication Instructions Recorded Confirmed ginkgo biloba 60 mg capsule 60 mg PO DAILY 09/15/20 08/01/24 aspirin 81 mg tablet,delayed 81 mg PO DAILY 07/21/21 08/01/24 release cholecalciferol (vitamin D3) 125 125 mcg PO DAILY 09/15/22 08/01/24 mcg (5,000 unit) capsule magnesium 200 mg tablet 400 mg PO DAILY 09/15/22 08/01/24 zinc sulfate 50 mg zinc (220 mg) 50 mg PO DAILY 09/15/22 08/01/24 tablet red yeast rice 600 mg capsule 600 mg PO DAILY 03/28/23 08/01/24 ascorbic acid (vitamin C) 500 mg 500 mg PO DAILY 08/01/24 08/01/24 tablet Previous Rx's Medication Instructions Recorded multivitamin 1 tab PO DAILY #30 tabs 03/30/22 losartan 50 mg tablet 50 mg PO BID #180 tabs 05/07/24 atorvastatin 40 mg tablet 40 mg PO DAILY #90 tabs 05/28/24 Results & Data (ED) Vital Signs Vital Signs - 24 hr 08/18/24 18:38 08/18/24 18:41 08/18/24 18:50 Temperature 36.3 C L Temperature Source Skin Pulse Rate 83 Pulse Rate [Right Brachial] Pulse Rhythm [Right Brachial] Pulse Strength [Right Brachial] Respiratory Rate 18 Respiratory Effort / Characteristics Non-Labored Spontaneous Respiratory Depth Normal Respiratory Pattern Regular Blood Pressure 125/89 Blood Pressure [Right Arm] Blood Pressure Mean 101 Blood Pressure Mean [Right Arm] Pulse Oximetry 96 100 96 Oxygen Delivery Method Room Air Room Air Room Air Sepsis Recent Fever Within 48 Hours No Sepsis New/Unexplained Change in Mental Status N/A Sepsis Action Taken by Nursing No Action Required 08/18/24 19:14 08/18/24 20:38 Temperature Temperature Source Pulse Rate 74 Pulse Rate [Right Brachial] 68 Pulse Rhythm [Right Brachial] Regular Pulse Strength [Right Brachial] Normal Respiratory Rate 18 Respiratory Effort / Characteristics Non-Labored Respiratory Depth Normal Respiratory Pattern Blood Pressure Blood Pressure [Right Arm] 141/79 H Blood Pressure Mean Blood Pressure Mean [Right Arm] 99 Pulse Oximetry 96 Oxygen Delivery Method Room Air Sepsis Recent Fever Within 48 Hours Sepsis New/Unexplained Change in Mental Status Sepsis Action Taken by Nursing Laboratory Data 08/18/24 19:01 08/18/24 19:01 Lab Results 08/18/24 08/18/24 08/18/24 Range/Units 19:01 19:21 20:56 WBC 11.72 H (4.8-10.8) K/ul RBC 5.54 (4.70-6.10) M/uL Hgb 16.9 (14.0-18.0) g/dl Hct 49.3 (42.0-52.0) % MCV 89.0 (80.0-100.0) fL MCH 30.5 (25.0-34.0) pg MCHC 34.3 (32.0-36.0) g/dL RDW Std Deviation 39.9 (36.4-46.3) fL RDW Coeff of Tati 12.2 (11.5-14.5) % Plt Count 218 (130-400) K/uL MPV 10.5 (9.4-12.4) fL Immature Gran % (Auto) 0.3 % Neut % (Auto) 73.5 % Lymph % (Auto) 19.1 % Mccracken % (Auto) 6.0 % Eos % (Auto) 0.7 % Baso % (Auto) 0.4 % Neut # (Auto) 8.61 H (1.40-6.50) K/uL Lymph # (Auto) 2.24 (1.20-3.40) K/uL Mccracken # (Auto) 0.70 H (0.11-0.59) K/uL Eos # (Auto) 0.08 (0.00-0.50) K/uL Baso # (Auto) 0.05 (0.00-0.20) K/uL Immature Gran # (Auto) 0.04 (0.01-0.20) K/uL PT 11.2 (9.0-12.0) Seconds INR 1.0 (0.9-1.1) Sodium 139 (136-145) mmol/L Potassium 4.5 (3.5-5.1) mmol/L Chloride 104 (98-107) mmol/L Carbon Dioxide 26 (21-32) mmol/L Anion Gap 9 (3-11) BUN 28 H (6-23) mg/dl Creatinine 1.14 (0.6-1.4) mg/dl Est Cr Clr Drug Dosing 64.9 ml/min eGFR 70.49 BUN/Creatinine Ratio 24.6 H (10-20) Glucose 76 (70-99(Fasting)) mg/dl Calcium 10.1 (8.6-10.3) mg/dl Magnesium 2.3 (1.7-2.4) mg/dl Total Bilirubin 0.8 (0.2-1.0) mg/dl AST 29 (13-39) U/L ALT 25 (7-52) U/L Alkaline Phosphatase 61 (34-104) U/L Troponin I High Sens 29.6 H 47.8 H D (0-20) pg/ml B-Natriuretic Peptide 41 (0-100) pg/ml Total Protein 8.1 (6.0-8.3) gm/dl Albumin 4.8 (3.4-5.0) gm/dl Globulin 3.3 (2.5-4.0) gm/dl Albumin/Globulin Ratio 1.5 (0.9-2) Lipase 37 (11-82) U/L Urine Color Yellow Urine Appearance Clear (Clear) Urine pH 6.5 (4.5-7.5) Ur Specific Allison 1.028 (1.000-1.030) Urine Protein Negative (Negative) Urine Glucose (UA) Negative (Negative) Urine Ketones 1+ H (Negative) Urine Blood Negative (Negative) Urine Nitrite Negative (Negative) Urine Bilirubin Negative (Negative) Urine Urobilinogen Negative (Negative) Ur Leukocyte Esterase Negative (Negative) SARS-CoV-2 (PCR) NEGATIVE (Negative) Influenza Type A (PCR) Negative (Neg) Influenza Type B (PCR) Negative (Neg) RSV (RT-PCR) Negative (Neg) Imaging Data Radiologist's Impression: Chest X-Ray 08/18/24 18:50 INDICATION: Chest pain. TECHNIQUE: Frontal radiograph of the chest. COMPARISON: Radiograph from 02/24/2024. FINDINGS: The cardiomediastinal silhouette and pulmonary vasculature appear within normal limits. Elevation of the right hemidiaphragm. Subsegmental atelectasis in the lung bases. No infiltrate, pleural effusion or pneumothorax. No acute osseous abnormality evident. IMPRESSION: No acute cardiopulmonary process. Electronically signed by Bal Mello 08-18-2024 7:35 PM Discharge Plan Visit Data Chief Complaint: Cardiac Assessment Stated Complaint: CHEST PAIN ED Provider: Sabina Hare Discharge Problem: Chest pain, Heart palpitations, Non-ST elevation NC (NSTEMI) Forms Stand Alone Forms: My [facility] Prescriptions Prescriptions: No Action ginkgo biloba 60 mg capsule 60 mg PO DAILY Rx Instructions: give with meal/snack cholecalciferol (vitamin D3) 125 mcg (5,000 unit) capsule 125 mcg PO DAILY zinc sulfate 50 mg zinc (220 mg) tablet 50 mg PO DAILY magnesium 200 mg tablet 400 mg PO DAILY losartan 50 mg tablet 50 mg PO BID Qty: 180 3RF atorvastatin 40 mg tablet 40 mg PO DAILY Qty: 90 3RF aspirin 81 mg tablet,delayed release (DR/EC) 81 mg PO DAILY red yeast rice 600 mg capsule 600 mg PO DAILY Rx Instructions: give with meal/snack multivitamin Tablet 1 tab PO DAILY Qty: 30 0RF ascorbic acid (vitamin C) 500 mg tablet 500 mg PO DAILY Referrals Referrals: Gee Pham DO [Primary Care Provider] -
[2024-08-18 20:15] LABS: Influenza A virus by PCR Negative (Neg); Influenza B virus by PCR Negative (Neg); RSV by PCR Negative (Neg); SARS CoV2 RNA(COVID-19) Ceph NEGATIVE (Negative)
--- NOTE | 2024-08-18 23:29 | History & Physical Report ---
Date of Service August 18, 2024 Assessment & Plan (1) Non-ST elevation [place] (NSTEMI): Plan 68-year-old male PMHx prostate cancer (s/p prostatectomy 2015), HTN, GERD, CAD s/p CABG, and dyslipidemia presenting for his heart rate being "erratic." ED evaluation reveals WBC 11.72, CMP with BUN 28 and ratio 24.6, troponin 29.6, 47.8 on repeat, BNP 41, lipase 37, UA negative, BioFire negative; CXR no acute findings; EKG is sinus rhythm with sinus arrhythmia at rate 77 bpm. #NSTEMI Symptoms starting around 1615, described as a overall heaviness to his body with heart rate ranging from 52 bpm to 98 bpm for 1 hours after resting. States that the heaviness resolved when he arrived to the hospital. Does have history of CABG x 4 in 2019, and follows with rental manager regularly. Was scheduled to have an echo and stress testing completed this coming week on Monday. Following with cardiology, Dr. Currie. During admitting evaluation, he did become slightly winded with rest, O2 sat stayed at 96% and heart rate went from 65 to 72 bpm, appearing to be sinus arrhythmia on telemetry. - EKG sinus rhythm with marked sinus arrhythmia, possible LAE and rate 77 bpm - Troponin 29.6, repeat 47.8; trend to peak - Echo pending; stress echo pending - Lipid panel pending - On ASA 81mg daily - No O2 at baseline, O2 prn; wean as patient tolerates if needed - Consider cariology consult am, does follow with Dr. Currie #HTN- Losartan #HLD- Atorvastatin Dispo: Admit, med/tele VTE prophylaxis: Lovenox This document was dictated utilizing TrueView. Please excuse any grammatical errors that may be secondary to use of this software. Admission and Anticipated Discharge Date Admission Date: 08/18/2024 History of Present Illness Chief Complaint: Abnormal heart rate Primary Care Provider: Gee Pham DO 68-year-old male PMHx prostate cancer (s/p prostatectomy 2015), HTN, GERD, CAD s/p CABG, and dyslipidemia presenting for his heart rate being "erratic." States that around 1400 until around 1615 he met his for shoveling snow at 3 different properties. At the third property he started to feel an overwhelming fatigue and a "heaviness" throughout his entire body. He states that this heaviness lasted approximately 3 hours, and his heart rate ranged anywhere from 52 bpm to 98 bpm and this occurred for duration of 1 hour after rest. His noticed that he appeared more flush. He felt that he was maybe a little more winded than usual, but denying palpitations, chest pressure or pain, or overt SOB. In December 2019 he had a CABG x 4, and he states that he is scheduled to have an echo and stress echo completed this coming week on 08/21/2023. Denying chest pain, palpitations, SOB, cough, diaphoresis, abdominal pain, N/V/D/C, numbness/tingling, syncopal episodes, or dizziness. No fever/chills. Has not had this happen before. ED evaluation reveals WBC 11.72, CMP with BUN 28 and ratio 24.6, troponin 29.6, 47.8 on repeat, BNP 41, lipase 37, UA negative, BioFire negative; CXR no acute findings; EKG is sinus rhythm with sinus arrhythmia at rate [address] Pham's attestation for adjustments/additions to treatment plan. Allergies Allergy/AdvReac Type Severity Reaction Status Date / Time No Known Drug Allergies Allergy Verified 08/01/24 11:24 Home Medications Medication Instructions Recorded Confirmed Type ginkgo biloba 60 mg capsule 60 mg PO DAILY 09/15/20 08/18/24 History aspirin 81 mg tablet,delayed 81 mg PO DAILY 07/21/21 08/18/24 History release multivitamin 1 tab PO DAILY #30 tabs 03/30/22 08/18/24 Rx cholecalciferol (vitamin D3) 125 125 mcg PO DAILY 09/15/22 08/18/24 History mcg (5,000 unit) capsule magnesium 200 mg tablet 400 mg PO DAILY 09/15/22 08/18/24 History zinc sulfate 50 mg zinc (220 mg) 50 mg PO DAILY 09/15/22 08/18/24 History tablet red yeast rice 600 mg capsule 600 mg PO DAILY 03/28/23 08/18/24 History losartan 50 mg tablet 50 mg PO BID #180 tabs 05/07/24 08/18/24 Rx atorvastatin 40 mg tablet 40 mg PO DAILY #90 tabs 05/28/24 08/18/24 Rx ascorbic acid (vitamin C) 500 mg 500 mg PO DAILY 08/01/24 08/18/24 History tablet coenzyme Q10 30 mg capsule 30 mg PO DAILY 08/18/24 08/18/24 History Past Med/Surg History Problem List Non-ST elevation [place] (NSTEMI) (Acute) Heart palpitations (Acute) Chest pain (Acute) Scrotal cyst Dyslipidemia Palpitations Hx of CABG Hx of lithotripsy Hx of prostatectomy Encounter for preventative adult health care examination CAD (coronary artery disease) Kidney stone (Chronic) GERD (gastroesophageal reflux disease) (Chronic) 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) Essential (primary) hypertension (Chronic) Impotence, organic (Chronic) Nocturia (Chronic) Personal history of irradiation (Chronic) Radiation proctitis (Chronic) Urinary incontinence (Chronic) Prostate cancer (Chronic 04/28/16) Ureteral calculus (Chronic) Medical History Acute cholecystitis Acute coronary syndrome NSTEMI, initial episode of care Internal hemorrhoids Other hemorrhoids Surgical History Hx laparoscopic cholecystectomy (10/25/23) Laparoscopic Cholecystectomy(Not Applicable) - Samuel Vital, DO Family History Father Diabetes Hypertension Prostate cancer Mother Cardiac disorder Kidney stones Breast cancer Uncle Myocardial infarction Denies family history of Ovarian cancer Colorectal cancer Social History Smoking Status: Never smoker Second Hand Exposure: No; Do You Dip or Chew Tobacco: No; Hx Alcohol Use: No Hx Substance Use: No Preferred Language: Uzbek Communication Ability: Effective Visual Impairment: Limited Hearing Ability: Normal Shipping Assistant Required: No Beliefs That Will Affect Care: None marital status: Current Living Situation: Spouse current occupational status: employed current occupation: [employer] How many Children do You have: 2 Feels Safe at Home: Yes Childhood Exposure to Second-Hand Smoke: No Diet: regular caffeine: No Dental Care, Regularly: Yes Physical Activity Frequency: 3-4 Times per Week Seatbelt Use: always Sunscreen Use: Yes Assistive Devices: Walker Review of Systems Review of Systems: All systems reviewed & are unremarkable except as noted in Subjective Physical Exam Physical Exam: General: No acute distress, hemodynamically stable Skin: Warm and dry Head: Normocephalic, atraumatic Eyes: PERRL, conjunctivae clear, sclera non-icteric ENT: External ear and ear canal without swelling; nose atraumatic; good dentition, tongue normal appearance, pharynx normal Neck: Supple, no LAD; no JVD Cardio: RRR, no M/G/R, S1 and S2 normal Resp: No respiratory distress, Lungs CTA in all lobes bilaterally, no wheezes, rales, or rhonchi Abdomen: Soft, symmetric, nontender; No masses or hepatosplenomegaly; Bowel sounds normoactive MSK: No deformities, full ROM throughout; pulses palpable and equal; no edema; no calf size discrepancy. Neuro: Awake, alert; CN grossly intact Psych: Appropriate mood and affect; good judgement and insight. present in room at time of visit. Results & Data Results & Data Vital Signs (Past 12 Hours) Vital Signs Temp Pulse Pulse Resp BP BP Pulse Ox 08/18/24 23:09 68 08/18/24 23:00 62 16 126/76 97 08/18/24 20:38 68 18 141/79 H 96 08/18/24 19:14 74 08/18/24 18:50 96 08/18/24 18:41 36.3 C L 83 18 125/89 100 08/18/24 18:38 96 O2 Del Method 08/18/24 23:09 08/18/24 23:00 Room Air 08/18/24 20:38 Room Air 08/18/24 19:14 08/18/24 18:50 Room Air 08/18/24 18:41 Room Air 08/18/24 18:38 Room Air Laboratory Results 08/18/24 08/18/24 08/18/24 20:56 19:21 19:01 WBC 11.72 H RBC 5.54 Hgb 16.9 Hct 49.3 MCV 89.0 MCH 30.5 MCHC 34.3 RDW Std Deviation 39.9 RDW Coeff of Tati 12.2 Plt Count 218 MPV 10.5 Immature Gran % (Auto) 0.3 Neut % (Auto) 73.5 Lymph % (Auto) 19.1 [place] % (Auto) 6.0 Eos % (Auto) 0.7 Baso % (Auto) 0.4 Neut # (Auto) 8.61 H Lymph # (Auto) 2.24 [place] # (Auto) 0.70 H Eos # (Auto) 0.08 Baso # (Auto) 0.05 Immature Gran # (Auto) 0.04 PT 11.2 INR 1.0 Sodium 139 Potassium 4.5 Chloride 104 Carbon Dioxide 26 Anion Gap 9 BUN 28 H Creatinine 1.14 Est Cr Clr Drug Dosing 64.9 eGFR 70.49 BUN/Creatinine Ratio 24.6 H Glucose 76 Calcium 10.1 Magnesium 2.3 Total Bilirubin 0.8 AST 29 ALT 25 Alkaline Phosphatase 61 Troponin I High Sens 47.8 H D 29.6 H B-Natriuretic Peptide 41 Total Protein 8.1 Albumin 4.8 Globulin 3.3 Albumin/Globulin Ratio 1.5 Lipase 37 Urine Color Yellow Urine Appearance Clear Urine pH 6.5 Ur Specific [place] 1.028 Urine Protein Negative Urine Glucose (UA) Negative Urine Ketones 1+ H Urine Blood Negative Urine Nitrite Negative Urine Bilirubin Negative Urine Urobilinogen Negative Ur Leukocyte Esterase Negative SARS-CoV-2 (PCR) NEGATIVE Influenza Type A (PCR) Negative Influenza Type B (PCR) Negative RSV (RT-PCR) Negative Diagnostic Findings Chest X-Ray 08/18/24 18:50 INDICATION: Chest pain. TECHNIQUE: Frontal radiograph of the chest. COMPARISON: Radiograph from 02/24/2024. FINDINGS: The cardiomediastinal silhouette and pulmonary vasculature appear within normal limits. Elevation of the right hemidiaphragm. Subsegmental atelectasis in the lung bases. No infiltrate, pleural effusion or pneumothorax. No acute osseous abnormality evident. IMPRESSION: No acute cardiopulmonary process. Electronically signed by Bal Mello 08-18-2024 7:35 PM ECG Additional Comments: Sinus rhythm with marked sinus arrhythmia, possible LAE 77 bpm, DC 146, QRS 82, QT/QTc 360/411, PRT 66/-23/48 Code Status & VTE Plan Code Status Full VTE Prophylaxis Plan VTE Prophylaxis will be ordered: Yes Supervising Physician Co-Signing Physician Notes Attending addendum: I have physically seen this patient, have supervised the JAISON's activities, and agree with the H&P unless as otherwise noted. Assessment and Plan: The patient is a 68-year-old male with a past medical history including prostate cancer status post prostatectomy 2016, hypertension, GERD, CAD status post CABG, and dyslipidemia. He presented to the emergency department with symptoms that began around 4:15 in the afternoon, that were consistent with overall heaviness to his body, and noted his heart rate change again rate from 52 to 98 bpm. Patient reports that he was scheduled with Dr. Currie from cardiology, to have an echo cardiogram and stress echocardiogram in a few days. However, due to symptoms as noted, he presented to the ED for assessment this evening. Elevated troponin/hypertension- Initial troponin 29.6, with follow-up 47.8 The patient will be admitted to telemetry for serial cardiac enzymes, serial EKG's, cardiac rhythm monitoring and a 2-D echocardiogram with Dopplers. EKG with marked sinus arrhythmia Continue losartan, aspirin Check a fasting lipid panel and hemoglobin A1c Hyperlipidemia-atorvastatin PG Care Time/CCT Total # of Minutes Spent Total Time Spent with Patient: Total time spent is greater than 50% in coordination of care (as documented) at patient's floor/unit and/or counseling patient: Coding Level of Care Code 78623 INT INP/OBS CARE 3/75MIN Diagnoses Non-ST elevation KS (NSTEMI) I21.4
[2024-08-19 01:44] VITALS: TEMP 98.2
[2024-08-19 03:40] LABS: Chol HDL Ratio 2.1 (0-5)
[2024-08-19] MEDS ORDERED: POLYETHYLENE (MIRALAX) 17 GM PACK PO PRN (04:33)
[2024-08-19] MEDS ORDERED: MELATONIN 3 MG TAB PO PRN (04:33)
[2024-08-19] MEDS ORDERED: ONDANSETRON INJ 2 MG/ML 2 ML VIAL IV PRN (04:33)
[2024-08-19] MEDS: ASPIRIN 81 MG ECTAB PO SCH (08:24)
[2024-08-19] MEDS: MAGNESIUM OXIDE 400 MG TAB PO SCH (08:24)
[2024-08-19] MEDS: CHOLECALCIFEROL 125 MCG (5,000 UNITS) TAB PO SCH (08:24)
[2024-08-19] MEDS: LOSARTAN POTASSIUM 50 MG TAB PO SCH (08:24)
[2024-08-19] MEDS: ASCORBIC ACID 500 MG TAB PO SCH (08:25)
[2024-08-19] MEDS: ATORVASTATIN 40 MG TAB PO SCH (08:25)
[2024-08-19 15:17] VITALS: BP 122/81; PULSE 82; RESP 14; O2SAT 99
--- NOTE | 2024-08-19 16:45 | XCELERA ---
[id number] \\[id number]\[id number]
--- NOTE | 2024-08-19 17:03 | XCELERA ---
[id number] \\[id number]
--- NOTE | 2024-08-19 17:31 | Discharge Summary ---
Discharge Summary Date of Service August 19, 2024 Principal Dx & Hospital Course #1 = Principal Diagnosis (1) Non-ST elevation [place] (NSTEMI): Plan 68-year-old male PMHx prostate cancer (s/p prostatectomy 2015), HTN, GERD, CAD s/p CABG, and dyslipidemia presenting for his heart rate being "erratic." ED evaluation reveals WBC 11.72, CMP with BUN 28 and ratio 24.6, troponin 29.6, 47.8 on repeat, BNP 41, lipase 37, UA negative, BioFire negative; CXR no acute findings; EKG is sinus rhythm with sinus arrhythmia at rate 77 bpm. #NSTEMI Symptoms starting around 161, described as a overall heaviness to his body with heart rate ranging from 52 bpm to 98 bpm for 1 hours after resting. 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 Was scheduled to have an echo and stress testing completed this coming week on Monday. Echo and stress echo completed while in patient without acute changes from prior or concerns for ischemia. Heart rate has remained around his normal rate in the 60s. no further episodes of chest pain, heaviness or shortness of breath. Troponin peaked at 65, likely component of demand. His lipid panel showed good control with current statin. Discussed case with Dr. Currie - no further recommendations, stable for d/c home. No changes to home medications were made. #HTN- Losartan #HLD- Atorvastatin Dispo: Discharge to home today Notes For Next Care Provider can cancel outpatient stress test Medication Changes From Visit none Admission HPI Per Admitting Provider 68-year-old male PMHx prostate cancer (s/p prostatectomy 2015), HTN, GERD, CAD s/p CABG, and dyslipidemia presenting for his heart rate being "erratic." States that around 1400 until around 1615 he met his for shoveling snow at 3 different properties. At the third property he started to feel an overwhelming fatigue and a "heaviness" throughout his entire body. He states that this heaviness lasted approximately 3 hours, and his heart rate ranged anywhere from 52 bpm to 98 bpm and this occurred for duration of 1 hour after rest. His noticed that he appeared more flush. He felt that he was maybe a little more winded than usual, but denying palpitations, chest pressure or p ain, or overt SOB. In December 2019 he had a CABG x 4, and he states that he is scheduled to have an echo and stress echo completed this coming week on 08/21/2023. Denying chest pain, palpitations, SOB, cough, diaphoresis, abdominal pain, N/V/D/C, numbness/tingling, syncopal episodes, or dizziness. No fever/chills. Has not had this happen before. ED evaluation reveals WBC 11.72, CMP with BUN 28 and ratio 24.6, troponin 29.6, 47.8 on repeat, BNP 41, lipase 37, UA negative, BioFire negative; CXR no acute findings; EKG is sinus rhythm with sinus arrhythmia at rate [address] Pham's attestation for adjustments/additions to treatment plan. Discharge Exam General: NAD, VS as above Resp: normal respiratory effort, lungs clear to auscultation CV: RRR, no murmur, Abd: normal bowel sounds, non tender, no hepatosplenomegaly Extremities: Moves all extremities, no edema Neuro: A&O x3, Skin: intact, no lesions noted Discharge Plan Discharge Items Patient Disposition: Home - Self-Care Reason For Visit: NSTEMI, ELEVATED TROP Discharge Diagnosis: ELevated Trop Activity: Resume your previous activity Non-emergency contact: Primary Care Provider and Storage And Backup Administrator Call non-emergency contact if: you have any medication questions, your symptoms worsen and your pain is not controlled Follow-up/Referrals: Gee Pham, [Primary Care Provider] - (follow up within 1 week) Diet: Heart Healthy Addtl Attending Provider Instructions: Mr. Damon, You were hospitalized after having sustained tachycardia and a heaviness sensation after shoveling snow. You had a slight elevation in your cardiac enzymes (troponin) that did not represent a heart attack. You had a echocardiog omar and stress echocardiogram done that showed your heart is functioning well, no concerns for blockages. I ran your case by Dr. Currie and he had not additional recommendations. Continue your home medications. Make sure you are staying hydrated with physical activity and rest when your body tells you to! Please follow up with your PCP in one week. No changes to your medications. Enjoy your trip and take care! Pending Studies at Discharge: No Stand-Alone Forms: My [employer], Smoking Cessation Medications and DC Order Prescriptions: Continued ginkgo biloba 60 mg capsule 60 mg PO DAILY Rx Instructions: give with meal/snack cholecalciferol (vitamin D3) 125 mcg (5,000 unit) capsule 125 mcg PO DAILY zinc sulfate 50 mg zinc (220 mg) tablet 50 mg PO DAILY magnesium 200 mg tablet 400 mg PO DAILY losartan 50 mg tablet 50 mg PO BID Qty: 180 3RF atorvastatin 40 mg tablet 40 mg PO DAILY Qty: 90 3RF aspirin 81 mg tablet,delayed release (DR/EC) 81 mg PO DAILY red yeast rice 600 mg capsule 600 mg PO DAILY Rx Instructions: give with meal/snack multivitamin Tablet 1 tab PO DAILY Qty: 30 0RF ascorbic acid (vitamin C) 500 mg tablet 500 mg PO DAILY coenzyme Q10 [CoQ-10] 30 mg Capsule 30 mg PO DAILY Discharge Orders: Discharge Order (Routine); Ordered 08/19/24 Ordered By: María Pinto Admission Data Admit Date/Time: 08/18/24 23:23 Attending Provider: Shayy Cerda Admit Provider: Bobby Pham Primary Care Provider: Gee Pham Other Providers: Bobby Pham Hospital Stay Data Consultations 08/18/24 21:50 ED Decision to Admit Stat Pending Results Patient Have Any Pending Studies at Discharge: No Discharge Instructions Given to Patient (Per Discharging Provider) Mr. Damon, You were hospitalized after having sustained tachycardia and a heaviness sensation after shoveling snow. You had a slight elevation in your cardiac enzymes (troponin) that did not represent a heart attack. You had a echocardiogram and stress echocardiogram done that showed your heart is functioning well, no concerns for blockages. I ran your case by Dr. Currie and he had not additional recommendations. Continue your home medications. Make sure you are staying hydrated with physical activity and rest when your body tells you to! Please follow up with your PCP in one week. No changes to your medications. Enjoy your trip and take care! Total Time Total Time Spent Total Time Spent (In Minutes): Time spent day of discharge 35 minutes including direct patient care, medication reconciliation, documentation, review of labs and images, and coordination of care. 4 Coding Level of Care Code 93735 INP/OBS DISCH >30 MIN Diagnoses Non-ST elevation NV (NSTEMI) I21.4
--- NOTE | 2024-08-20 05:29 | Billing Data ---
Date of Service August 20, 2024 Coding Level of Care Code 07089 INT INP/OBS CARE
--- NOTE | 2024-08-21 05:20 | Electrocardiogram Report ---
Test Reason : Blood Pressure : */* mmHG Vent. Rate : 77 BPM Atrial Rate : 77 BPM P-R Int : 146 ms QRS Dur : 82 ms QT Int : 364 ms P-R-T Axes : 66 -23 48 degrees QTcB Int : 411 ms Sinus rhythm with marked sinus arrhythmia Possible Left atrial enlargement Borderline ECG When compared with ECG of 25-Oct-2023 04:56, No significant change was found Confirmed by Chemo Turner ([id number]) on 08/21/2024 5:20:26 AM Referred By: REFERRED SELF Confirmed By: Chemo Turner
== END 2024-08-19 17:57 | disposition home or self-care (01) ==
LOC: EDINP 18:37 → ED 18:37 → SUATTDRO 23:23 → EDINP 08-19 01:53